=== PATIENT | male | born 1950 | race Caucasian/White ===

== ENCOUNTER 2021-08-12 10:37 | Emergency (ER) | payer OTHER ==
--- NOTE | 2021-08-12 11:55 | RAD REPORT ---
EXAM DESCRIPTION: RAD - Chest Single View - 08/12/2021 11:43 am CLINICAL HISTORY: edema COMPARISON: No comparisons FINDINGS: Lines: None. Lungs: No evidence of edema or pneumonia. Large lung volumes. Pleural: No significant pleural effusions or pneumothorax. Cardiac: The heart size is within normal limits. Bones: No acute fractures. Other: IMPRESSION: No acute cardiopulmonary disease.
[2021-08-12 12:49] LABS: Absolute Lymphocytes (CBC) 1.1 K/uL (0.7-4.9); Basophils % 0.4 % (0-1.3); Protime INR 1.11
[2021-08-12 13:01] LABS: ALT/SGPT 16 U/L (12-78); AST/SGOT 14 U/L (15-37); Albumin 2.8 g/dL (3.4-5.0); Alkaline Phosphatase 85 U/L (45-117); BUN Blood Urea Nitrogen 17 mg/dL (7-18); Bicarbonate 28 mmol/L (21-32); Bilirubin Direct 0.2 mg/dL (0-0.2); Bilirubin Total 0.6 mg/dL (0.2-1.0); Glucose Level 112 mg/dL (74-106); Magnesium 2.3 mg/dL (1.8-2.4); NT PRO-BNP 679 pg/mL (<125); Protein, Total 8.2 g/dL (6.4-8.2); Sodium Level 140 mmol/L (136-145); Troponin (Emerg Dept Use Only) < 0.02 ng/mL (0.0-0.045)
[2021-08-12 13:13] LABS: Lymphocytes % 13.4 % (15.3-44.8); MPV 8.1 fL (7.6-11.3); RBC Red Blood Cell Count 4.47 M/uL (4.33-5.43)
--- NOTE | 2021-08-12 13:48 | ER ---
Nurse's Notes [facility] Name: Patricio King Age: 71 yrs Sex: Male : 1950 Arrival Date: 08/12/2021 Time: 10:43 Bed 19 Private MD: Diagnosis: Generalized edema Presentation: 08/12 10:53 Chief complaint: Patient states: "my left foot started swelling up and now my right aa5 foot is swollen and this morning when I woke up my left hand is swollen and painful". Pt also states "I have an old injury to my right ring finger and this morning it was bothering me and it was swollen". Coronavirus screen: At this time, the client does not indicate any symptoms associated with coronavirus-19. Ebola Screen: No symptoms or risks identified at this time. Initial Sepsis Screen: Does the patient meet any 2 criteria? No. Patient's initial sepsis screen is negative. Does the patient have a suspected source of infection? No. Patient's initial sepsis screen is negative. Risk Assessment: Do you want to hurt yourself or someone else? Patient reports no desire to harm self or others. Onset of symptoms was July 2021. 10:53 Acuity: CATARINO 3 aa5 10:53 Method Of Arrival: Wheelchair aa5 Historical: - Allergies: 10:51 No Known Allergies; aa5 - Home Meds: 10:51 None [Active]; aa5 - PMHx: 10:51 None; aa5 - PSHx: 10:51 Prostate cancerous mass removed; aa5 - Immunization history:: Client reports having NOT received the Covid vaccine. - Social history:: Smoking status: Patient reports the use of cigarette tobacco products, smokes one-half pack cigarettes per day, Patient/guardian denies using alcohol, street drugs, The patient lives with family. - Family history:: not pertinent. Screenin:15 Abuse screen: Denies threats or abuse. Nutritional screening: No deficits noted. sl2 Tuberculosis screening: No symptoms or risk factors identified. Fall Risk None identified. Assessment: 11:14 Reassessment: Portable CXR in progress at bedside. sl2 11:15 General: Appears in no apparent distress. comfortable, well groomed, Behavior is calm, sl2 cooperative, Reports Patient c/o swelling to bilateral lower legs and feet, swelling to bilateral hands with joint pain. Pain: Complains of pain in right bermudez and medial aspect of right calf and right calf and lateral aspect of right calf Pain currently is 5 out of 10 on a pain scale. Quality of pain is described as aching, Pain began gradually, Is continuous, Aggravated by increased activity, repositioning. Neuro: No deficits noted. Cardiovascular: No deficits noted. Respiratory:. GI: Abd is soft and non tender Distended, soft and nontender with palpation Reports bloating, Patient currently denies abdominal pain. : No deficits noted. EENT: No deficits noted. Derm: No deficits noted. Musculoskeletal: No deficits noted. 11:15 Musculoskeletal: Reports joint pain and muscle ache. sl2 Vital Signs: 10:53 BP 167 / 87; Pulse 88; Resp 18 S; Temp 98.3(TE); Pulse Ox 99% on R/A; Weight 63.5 kg aa5 (R); Height 5 ft. 7 in. (170.18 cm) (R); 11:15 BP 162 / 84; Pulse 85; Resp 18; Temp 98.4; Pulse Ox 99% on R/A; sl2 12:00 BP 165 / 82; Pulse 85; Resp 18; Temp 98.2; Pulse Ox 99% on R/A; sl2 13:00 BP 160 / 86; Pulse 69; Resp 18; Temp 98.2; Pulse Ox 99% on R/A; sl2 14:00 BP 162 / 80; Pulse 82; Resp 18; Temp 98.4; Pulse Ox 99% on R/A; sl2 10:53 Body Mass Index 21.93 (63.50 kg, 170.18 cm) aa5 ED Course: 10:43 Patient arrived in ED. as 10:51 Arm band placed on. aa5 10:55 Triage completed. aa5 10:56 Stephani Lea MD is Attending Physician. ma2 11:14 Nohelia Meade, STEF is Primary Nurse. sl2 11:15 No apparent distress. Awaiting lab results, Awaiting radiology results. sl2 11:15 Patient has correct armband on for positive identification. sl2 11:15 Patient did not have IV access during this emergency room visit. sl2 11:43 XRAY Chest (1 view) In Process Unspecified. EDMS 13:42 No provider procedures requiring assistance completed. sl2 13:48 Darius, Patricio, MD is Referral Physician. ma2 Administered Medications: 02:07 Drug: Lasix (furosemide) 20 mg Route: IVP; Site: right upper arm; 2 02:10 Follow up: Response: No adverse reaction 2 Outcome: 13:48 Discharge ordered by . ma2 14:13 Discharged to home ambulatory. sl2 14:13 Condition: stable 14:13 Discharge instructions given to patient, Instructed on discharge instructions, follow up and referral plans. no drinking with medication, safety practices, Demonstrated understanding of instructions, follow-up care, medications, Prescriptions given X 1. 14:17 Patient left the ED. 2 Signatures: Dispatcher [employer] EDMS Nadiya Cheung Audri, RN RN aa5 Stephani Lea MD MD va2 Nohelia Meade RN RN sl2
--- NOTE | 2021-08-12 13:48 | EDPHYS ---
Physician Documentation [facility] Name: Patricio King Age: 71 yrs Sex: Male : 1950 Arrival Date: 08/12/2021 Time: 10:43 Bed 19 Private MD: ED Physician Stephani Lea HPI: 08/12 11:40 This 71 yrs old Male presents to ER via Wheelchair with complaints of Edema. ma2 11:40 The complaints affect the lateral aspect of right calf, right calf, medial aspect of ma2 right calf and right bermudez. Onset: The symptoms/episode began/occurred gradually, 2 week(s) ago. Associated signs and symptoms: Pertinent negatives nausea, tingling, vomiting. Severity of symptoms: At their worst the symptoms were moderate, in the emergency department the symptoms are unchanged. The patient has not experienced similar symptoms in the past. Patient has bilateral lower extremity edema equal both sides pitting, gradual for 2 weeks. No other symptoms. He drinks beers every day.. Historical: - Allergies: 10:51 No Known Allergies; aa5 - Home Meds: 10:51 None [Active]; aa5 - PMHx: 10:51 None; aa5 - PSHx: 10:51 Prostate cancerous mass removed; aa5 - Immunization history:: Client reports having NOT received the Covid vaccine. - Social history:: Smoking status: Patient reports the use of cigarette tobacco products, smokes one-half pack cigarettes per day, Patient/guardian denies using alcohol, street drugs, The patient lives with family. - Family history:: not pertinent. ROS: 11:40 Constitutional: Negative for fever, chills, and weight loss. ma2 11:40 All other systems are negative. Exam: 11:40 Constitutional: This is a well developed, well nourished patient who is awake, alert, ma2 and in no acute distress. Head/Face: Normocephalic, atraumatic. Eyes: Pupils equal round and reactive to light, extra-ocular motions intact. Lids and lashes normal. Conjunctiva and sclera are non-icteric and not injected. Cornea within normal limits. Periorbital areas with no swelling, redness, or edema. ENT: Nares patent. No nasal discharge, no septal abnormalities noted. Tympanic membranes are normal and external auditory canals are clear. Oropharynx with no redness, swelling, or masses, exudates, or evidence of obstruction, uvula midline. Mucous membranes moist. Neck: Trachea midline, no thyromegaly or masses palpated, and no cervical lymphadenopathy. Supple, full range of motion without nuchal rigidity, or vertebral point tenderness. No Meningismus. Chest/axilla: Normal chest wall appearance and motion. Nontender with no deformity. No lesions are appreciated. Cardiovascular: Regular rate and rhythm with a normal S1 and S2. No gallops, murmurs, or rubs. Normal PMI, no JVD. No pulse deficits. Respiratory: Lungs have equal breath sounds bilaterally, clear to auscultation and percussion. No rales, rhonchi or wheezes noted. No increased work of breathing, no retractions or nasal flaring. Abdomen/GI: Soft, non-tender, with normal bowel sounds. No distension or tympany. No guarding or rebound. No evidence of tenderness throughout. Skin: Warm, dry with normal turgor. Normal color with no rashes, no lesions, and no evidence of cellulitis. MS/ Extremity: There is 2+ bilateral lower extremity edema up to mid tibia, equal both sides. Nontender. There is also a papular rash diffuse on both legs. Patient also have left wrist pain with full range of motion, no tenderness or wrist effusion, or skin changes. Otherwise pulses equal, no cyanosis. Neurovascular intact. Full, normal range of motion. Psych: Awake, alert, with orientation to person, place and time. Behavior, mood, and affect are within normal limits. Vital Signs: 10:53 BP 167 / 87; Pulse 88; Resp 18 S; Temp 98.3(TE); Pulse Ox 99% on R/A; Weight 63.5 kg aa5 (R); Height 5 ft. 7 in. (170.18 cm) (R); 11:15 BP 162 / 84; Pulse 85; Resp 18; Temp 98.4; Pulse Ox 99% on R/A; sl2 12:00 BP 165 / 82; Pulse 85; Resp 18; Temp 98.2; Pulse Ox 99% on R/A; sl2 13:00 BP 160 / 86; Pulse 69; Resp 18; Temp 98.2; Pulse Ox 99% on R/A; sl2 14:00 BP 162 / 80; Pulse 82; Resp 18; Temp 98.4; Pulse Ox 99% on R/A; sl2 10:53 Body Mass Index 21.93 (63.50 kg, 170.18 cm) aa5 MDM: 10:56 Patient medically screened. ma2 11:40 Differential diagnosis: Pitting edema lower extremity, likely due to COPD versus CHF ma2 versus kidney disease. Given the rash there is also possible infectious process going on. We will rule out emergency today and he needs a follow-up with PCP for further diagnosis. 13:47 Data reviewed: vital signs, nurses notes. Counseling: I had a detailed discussion with ma the patient and/or guardian regarding: the historical points, exam findings, and any diagnostic results supporting the discharge/admit diagnosis, the presence of at least one elevated blood pressure reading (>120/80) during this emergency department visit, lab results, radiology results, the need for outpatient follow up. Response to treatment: the patient's symptoms have markedly improved after treatment. 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 08/12 10:57 Order name: Basic Metabolic Panel [facility] 08/12 10:57 Order name: CBC with Diff [facility] 08/12 10:57 Order name: LFT's; Complete Time: 13:19 [facility] 08/12 10:57 Order name: Magnesium; Complete Time: 13:19 [facility] 08/12 10:57 Order name: NT PRO-BNP; Complete Time: 13:19 [facility] 08/12 10:57 Order name: PT-INR; Complete Time: 13:19 [facility] 08/12 10:57 Order name: Troponin (emerg Dept Use Only); Complete Time: 13:19 [facility] 08/12 10:57 Order name: XRAY Chest (1 view); Complete Time: 12:52 [facility] 08/12 10:57 Order name: EKG; Complete Time: 10:58 [facility] 08/12 10:57 Order name: Cardiac monitoring; Complete Time: 13:13 [facility] 08/12 10:57 Order name: EKG - Nurse/Tech; Complete Time: 13:42 [facility] 08/12 10:57 Order name: Basic Metabolic Panel; Complete Time: 13:19 [facility] 08/12 10:57 Order name: CBC with Automated Diff; Complete Time: 13:19 EDMS 08/12 10:57 Order name: IV Saline Lock; Complete Time: 13:13 ia2 08/12 10:57 Order name: Labs collected and sent; Complete Time: 13:13 ia2 08/12 10:57 Order name: O2 Per Protocol; Complete Time: 13:13 ia2 08/12 10:57 Order name: O2 Sat Monitoring; Complete Time: 13:13 ma2 Administered Medications: 02:07 Drug: Lasix (furosemide) 20 mg Route: IVP; Site: right upper arm; 2 02:10 Follow up: Response: No adverse reaction sl2 Disposition Summary: 08/12/21 13:48 Discharge Ordered Location: Home ma2 Condition: Stable ma2 Diagnosis - Generalized edema ma2 Followup: ma2 - With: Patricio Mccoy MD - When: Tomorrow - Reason: Continuance of care Discharge Instructions: - Discharge Summary Sheet ma2 - Edema, [id number] ma2 Forms: - Medication Reconciliation Form ma2 - Thank You Letter ma2 - Antibiotic Education ma2 - Prescription Opioid Use ma2 Prescriptions: - Lasix 20 mg Oral Tablet - take 1 tablet by ORAL route once daily; 20 tablet; Refills: 0, Product ma2 Selection Permitted Signatures: Dispatcher [employer] Mya Thornton, RN RN aa5 Stephani Lea MD MD ma2 Nohelia Meade RN RN sl2
[2021-08-12 14:22] VITALS: O2SAT 99
[2021-08-12] MEDS ORDERED: FUROSEMIDE 20 MG TABLET ONE (14:27)
[2021-08-12 14:28] VITALS: BP 162/80; TEMP 98.4
== END 2021-08-12 14:17 | disposition home or self-care (01) ==
LOC: ER 10:37
DX: R60.1 Generalized edema (principal); F17.210 Nicotine dependence, cigarettes, uncomplicated
CPT/HCPCS: 36415; 71045; 80048; 80076; 83735; 83880; 84484; 85025; 85610; 93005; 96374; 99283

== ENCOUNTER 2024-01-13 12:56 | Inpatient (IN) | payer OTHER, SELFPAY ==
--- OUTSIDE RECORDS SUMMARY | 2024-01-13 12:59 | XMS REPORT | Continuity of Care Document ---
Author Name Unknown Address [address] [facility] [address] [place] [address] [facility] thconnect Address [address] [facility] [address] [place] [address] Care Team Providers Care Motor Boss Name Role Phone Pcp, Patient Does Not Have A Primary Care Physic tyshawn SCOTTIE HERMOSILLO Attending Clinician Unavailab Dannie OAKLEY, Scottie Tran Attending Clinician [phone] Cheryle Chavez CRNA Attending Clinician [phone] Sandra Holland MD Attending Clinician + Doctor Unassigned, Stout Attending Clinician U navkendell Pob, [facility] Main Attending Clinician Unavailabl e Provider, [facility] Attending Clinician Unavailable LAVONNE PHELAN Attending Clinician EDWIGE Roach Attending Clinician Unavailable Mayuri Brice Attending Clinician [phone] MAUYRI PEDRAZA Attending Clinician Unavailable Nida LUGOSWDeepthi Attending Clinician Unava TERA Rooney Attending Clinician Unavailable Hans OAKLEY, Edwige Attending Clinician [phone] JOSE D EPSTEIN Attending Clinician Unavailable Az Le DO Attending Clinician [phone] Jose D Epstein MD Attending Clinician [phone] GELY DUMAS Attending Clinician Unavailable Gely Dumas MD Attending Clinician [phone] STEPHEN DOWNEY Attending Clinician UnavailStephen Churchill MD Attending Clinician [phone] DESTINEY CHÁVEZ Attending Clinician Unavailable SCOTTIE HERMOSILLO Admitting Clinician UnavailScottie Singletary MD Admitting Clinician [phone] JOSE D EPSTEIN Admitting Clinician Unavailable Jose D Epstein MD Admitting Clinician [phone] Stephen Downey MD Admitting Clinician [phone] DESTINEY CHÁVEZ Admitting Clinician Unavailable Payers Payer Name Policy Type Policy Number Effective Date Expirati on Date Source MEDICARE PART A \T\ B [id number] 2022 00:00:00 Problems Condition Name Condition Details Condition Category Status Onset Date Resolution Date Last Treatment Date Treating Clinician Comments Source Pulmonary hypertensi on Pulmonary hypertensi on Disease Active 2020-10 00:00: 00 [facility] Hypertensi ve emergency Hypertensi ve emergency Disease Active 2020-10 00:00: 00 [facility] Elevated brain natriureti c peptide (BNP) level Elevated brain natriureti c peptide (BNP) level Disease Active 2020-10 00:00: 00 [facility] Leg edema Leg edema Disease Active 2020-10 00:00: 00 [facility] Primary hypertensi on Primary hypertensi on Disease Active 2020-10 00:00: 00 [facility] Cigarette smoker Cigarette smoker Disease Active 2020-10 00:00: 00 [facility] Lesion of bladder Lesion of bladder Disease Active 11-02 00:00: 00 [facility] Benign prostatic hyperplasi a with urinary retention Benign prostatic hyperplasi a with urinary retention Disease Active 11-02 00:00: 00 [facility] Retention of urine, unspecifie d Retention of urine, unspecifie d Disease Active 11-02 00:00: 00 [facility] Allergies, Adverse Reactions, Alerts Allergy Name Allergy Type Status Severity Reaction(s) Onset Date Inactive Date Treating Clinician Comments Source Lisinopr il Propensi ty to adverse reaction s Active Cough 2020-10 00:00: 00 [facility] LISINOPR IL DRUG INGREDI Active COUGH 2020-10 00:00: 00 [facility] Social History Social Habit Start Date Stop Date Quantity Comments Source History of tobacco use Cigarette Smoker [facility] Exposure to SARS-CoV-2 (event) 2022-09-01 00:00:00 2022-09-11 16:38:00 Not sure [facility] Alcohol intake 2022-09-11 00:00:00 2022-09-11 00:00:00 .29 /d [facility] Tobacco use and exposure 2022-08-23 00:00:00 2022-08-23 00:00:00 Smokeless tobacco non-user [facility] Sex Assigned At 1950 00:00:00 1950 00:00:00 [facility] Smoking Status Start Date Stop Date Source Smokes tobacco daily 2022-08-23 00:00:00 [facility] Medications Ordered Medication Name Filled Medication Name Start Date Stop Date Current Medication? Ordering Clinician Indication Dosage Frequency Signature (SIG) Comments Components Source neomycin-po lymyxin-dex amethasone (MAXITROL) 3.5 mg/g-10,000 unit/g-0.1 % ophthalmic ointment 2021-10 20:07: 00 09-19 20:16 :55 No PRN, Starting on Sat09/19/22 at 1407, Until Sat09/19/22 at 1416, Routine, Intra-op [facility] dexamethaso ne (DECADRON PHOSPHATE) injection 2021-10 19:57: 00 09-19 20:16 :55 No PRN, Starting on Sat09/19/22 at 1357, Until Sat09/19/22 at 1416, Routine, Intra-op [facility] ceFAZolin (ANCEF) injection 2021-10 19:57: 00 09-19 20:16 :55 No PRN, Starting on Sat09/19/22 at 1357, Until Sat09/19/22 at 1416, ALEYDA, [facility] carbachoL (MIOSTAT) 0.01 % intraocular injection 2021-10 19:57: 00 09-19 20:16 :55 No PRN, Starting on Sat09/19/22 at 1357, Until Sat09/19/22 at 1416, Routine, Intra-op [facility] sodium chloride (NS) injection 2021-10 19:50: 00 09-19 20:16 :55 No PRN, Starting on Sat09/19/22 at 1350, Until Sat09/19/22 at 1416, Routine, Intra-op [facility] chondroitin sulf-sod hyaluronate (DUOVISC VISCO ELASTIC) intraocular injection 2021-10 19:49: 00 09-19 20:16 :55 No PRN, Starting on Sat09/19/22 at 1349, Until Sat09/19/22 at 1416, Routine, [facility]op [facility] EPINEPHrine 1:1,000 (1 mg/mL) (ADRENALIN) injection 2021-10 19:42: 00 09-19 20:16 :55 No PRN, Starting on Sat09/19/22 at 1342, Until Sat09/19/22 at 1416, Routine, Intra-op [facility] propofoL IV infusion 2021-10 19:40: 00 10-01 15:14 :19 No Intravenou s, ONCE INTRA PROCEDURE, Starting on Sat09/19/22 at 1340, Until Sat10/01/22 at 0914, Routine, Intra-op [facility] Hyaluronida se, Human Recomb. (HYLENEX) injection 2021-10 19:40: 00 09-19 20:16 :55 No PRN, Starting on Sat09/19/22 at 1340, Until Sat09/19/22 at 1416, Routine, Intra-op [facility] eye block syringe 11 mL 2021-10 19:40: 00 09-19 20:16 :55 No PRN, Starting on Sat09/19/22 at 1340, Until Sat09/19/22 at 1416, Intra-op [facility] balanced salt irrig soln comb1 (BSS PLUS) ophthalmic solution 500 mL bag 2021-10 19:39: 00 09-19 20:16 :55 No PRN, Starting on Sat09/19/22 at 1339, Until Sat09/19/22 at 1416, Routine, Intra-op [facility] lidocaine 1% (XYLOCAINE) 100 mg/10 mL (1 %) injection 2021-10 19:39: 00 09-19 20:14 :44 No Intravenou s, ONCE INTRA PROCEDURE, Starting on Sat09/19/22 at 1339, Until Sat09/19/22 at 1414, Routine, Intra-op [facility] water for irrigation irrigation solution 2021-10 19:37: 00 09-19 20:16 :55 No PRN, Starting on Sat09/19/22 at 1337, Until Sat09/19/22 at 1416, Routine, Intra-op [facility] lactated ringers IV infusion 2021-10 19:34: 00 09-19 20:14 :44 No IV Infusion, CONTINUOUS PRN, Starting on Sat09/19/22 at 1334, Until Sat09/19/22 at 1414, Routine, Intra-op [facility] cyclopent 1%-tropic 1%-phenyl 2.5%-ketor 0.5% (MYDRIATIC #5) ophthalmic solution syringe 0.5 mL 2021-10 18:15: 00 09-19 18:27 :00 No .5mL 0.5 mL, Left Eye, ONCE, 1 dose, On Sat09/19/22 at 1215, Routine, DSU Pre-op [facility] lactated ringers IV infusion 1,000 mL 2021-10 18:15: 00 09-19 18:28 :00 No 1000mL at 42 mL/hr, 1,000 mL, IV Infusion, ONCE, 1 dose, On Sat09/19/22 at 1215, Routine, DSU Pre-op [facility] cyclopent 1%-tropic 1%-phenyl 2.5%-ketor 0.5% (MYDRIATIC #5) ophthalmic solution syringe 0.5 mL 2021-10 18:15: 00 09-19 18:27 :00 No .5mL 0.5 mL, Left Eye, ONCE, 1 dose, On Sat09/19/22 at 1215, Routine, DSU Pre-op [facility] lactated ringers IV infusion 1,000 mL 2021-10 18:15: 00 09-19 18:28 :00 No 1000mL at 42 mL/hr, 1,000 mL, IV Infusion, ONCE, 1 dose, On Sat09/19/22 at 1215, Routine, DSU Pre-op [facility] diclofenac 50 mg EC tablet 2021-10 15:05: 00 Yes 50mg Take 50 mg by mouth 3 (three) times daily with meals. [facility] diclofenac 50 mg EC tablet 2021-10 15:05: 00 Yes 50mg Take 50 mg by mouth 3 (three) times daily with meals. [facility] diclofenac 50 mg EC tablet 2021-10 15:05: 00 Yes 50mg Take 50 mg by mouth 3 (three) times daily with meals. [facility] diclofenac 50 mg EC tablet 2021-10 16:36: 54 Yes 50mg Take 50 mg by mouth 3 (three) times daily with meals. [facility] sodium chloride (NS) injection 2021-10 18:41: 00 08-29 19:17 :44 No PRN, Starting on Sat08/29/22 at 1241, Until Sat08/29/22 at 1317, Routine, Intra-op [facility] neomycin-po lymyxin-dex amethasone (MAXITROL) 3.5 mg/g-10,000 unit/g-0.1 % ophthalmic ointment 2021-10 18:41: 00 08-29 19:17 :44 No PRN, Starting on Sat08/29/22 at 1241, Until Sat08/29/22 at 1317, Routine, Intra-op [facility] dexamethaso ne (DECADRON PHOSPHATE) injection 2021-10 18:41: 00 08-29 19:17 :44 No PRN, Starting on Sat08/29/22 at 1241, Until Sat08/29/22 at 1317, Routine, Intra-op [facility] ceFAZolin (ANCEF) injection 2021-10 18:41: 00 08-29 19:17 :44 No PRN, Starting on Sat08/29/22 at 1241, Until Sat08/29/22 at 1317, ALEYDA, Intra-op [facility] carbachoL (MIOSTAT) 0.01 % intraocular injection 2021-10 18:40: 00 08-29 19:17 :44 No PRN, Starting on Sat08/29/22 at 1240, Until Sat08/29/22 at 1317, Routine, Intra-op [facility] chondroitin sulf-sod hyaluronate (DUOVISC VISCO ELASTIC) intraocular injection 2021-10 18:31: 00 08-29 19:17 :44 No PRN, Starting on Sat08/29/22 at 1231, Until Sat08/29/22 at 1317, Routine, Intra-op [facility] EPINEPHrine 1:1,000 (1 mg/mL) (ADRENALIN) injection 2021-10 18:30: 00 08-29 19:17 :44 No PRN, Starting on Sat08/29/22 at 1230, Until Sat08/29/22 at 1317, Routine, Intra-op [facility] balanced salt irrig soln comb1 (BSS PLUS) ophthalmic solution 500 mL bag 2021-10 18:30: 00 08-29 19:17 :44 No PRN, Starting on Sat08/29/22 at 1230, Until Sat08/29/22 at 1317, Routine, Intra-op [facility] water for irrigation irrigation solution 2021-10 18:23: 00 08-29 19:17 :44 No PRN, Starting on Sat08/29/22 at 1223, Until Sat08/29/22 at 1317, Routine, Intra-op [facility] Hyaluronida se, Human Recomb. (HYLENEX) injection 2021-10 18:19: 00 08-29 19:17 :44 No PRN, Starting on Sat08/29/22 at 1219, Until Sat08/29/22 at 1317, Routine, [facility] 2021-10 18:19: 00 08-29 19:17 :44 No PRN, Starting on Sat08/29/22 at 1219, Until Sat08/29/22 at 1317, Intra-op [facility] cyclopent 1%-tropic 1%-phenyl 2.5%-ketor 0.5% (MYDRIATIC #5) ophthalmic solution syringe 0.5 mL 2021-10 16:15: 00 08-29 16:25 :00 No .5mL 0.5 mL, Right Eye, ONCE, 1 dose, On Sat08/29/22 at 1015, Routine, DSU Pre-op [facility] lactated ringers IV infusion 1,000 mL 2021-10 16:15: 00 08-29 16:25 :00 No 1000mL at 42 mL/hr, 1,000 mL, IV Infusion, ONCE, 1 dose, On Sat08/29/22 at 1015, Routine, [facility] cyclop[facility] 1%-tropic 1%-phenyl 2.5%-ketor 0.5% (MYDRIATIC #5) ophthalmic solution syringe 0.5 mL 2021-10 16:15: 00 08-29 16:25 :00 No .5mL 0.5 mL, Right Eye, ONCE, 1 dose, On Sat08/29/22 at 1015, Routine, [facility] lactated ringers [facility] infusion 1,000 mL 2021-10 16:15: 00 08-29 16:25 :00 No 1000mL at 42 mL/hr, 1,000 mL, IV Infusion, ONCE, 1 dose, On Sat08/29/22 at 1015, Routine, DSU Pre-op [facility] diclofenac 50 mg EC tablet 2021-10 13:52: 19 Yes 50mg Take 50 mg by mouth 3 (three) times daily with meals. [facility] diclofenac 50 mg EC tablet 2021-10 13:52: 19 Yes 50mg Take 50 mg by mouth 3 (three) times daily with meals. [facility] diclofenac 50 mg EC tablet 2021-10 13:52: 19 Yes 50mg Take 50 mg by mouth 3 (three) times daily with meals. [facility] atorvastati n 40 mg tablet 06-14 00:00: 00 Yes 40mg Take 40 mg by mouth in the morning. [facility] atorvastati n 40 mg tablet 0 8 00:00: 00 Yes 40mg Take 40 mg by mouth in the morning. [facility] atorvastati n 40 mg tablet 0 8 00:00: 00 Yes 40mg Take 40 mg by mouth in the morning. [facility] atorvastati n 40 mg tablet 06-14 00:00: 00 Yes 40mg Take 40 mg by mouth in the morning. [facility] atorvastati n 40 mg tablet 0 06-14 00:00: 00 Yes 40mg Take 40 mg by mouth in the morning. [facility] atorvastati n 40 mg tablet 0 825 00:00: 00 Yes 40mg Take 40 mg by mouth in the morning. [facility] atorvastati n 40 mg tablet 0 825 00:00: 00 Yes 40mg Take 40 mg by mouth in the morning. [facility] amLODIPine 5 mg tablet 8-16 00:00: 00 Yes 5mg Take 5 mg by mouth in the morning. [facility] amLODIPine 5 mg tablet 2021-0 8-16 00:00: 00 Yes 5mg Take 5 mg by mouth in the morning. [facility] 2021-0 8-16 00:00: 00 Yes 5mg Take 5 mg by mouth in the morning. [facility] amLODIPine 5 mg tablet 2021-0 8-16 00:00: 00 Yes 5mg Take 5 mg by mouth in the morning. [facility] amLODIPine 5 mg tablet 2021-0 8-16 00:00: 00 Yes 5mg Take 5 mg by mouth in the morning. [facility] amLODIPine 5 mg tablet 2021-0 8-16 00:00: 00 Yes 5mg Take 5 mg by mouth in the morning. [facility] amLODIPine 5 mg tablet 2021-0 8-16 00:00: 00 Yes 5mg Take 5 mg by mouth in the morning. [facility] triamcinolo ne acetonide 0.1 % dental paste 2021-0 2-10 00:00: 00 Yes by Dental route at bedtime. [facility] losartan 100 mg tablet 2021-0 2-10 00:00: 00 Yes [id number] 100mg Take 1 tablet by mouth daily. [facility] hydroCHLORO thiazide 25 mg tablet 2021-0 2-10 00:00: 00 Yes [id number] 25mg Take 1 tablet by mouth daily. [facility] triamcinolo ne acetonide 0.1 % dental paste 2021-0 2-10 00:00: 00 Yes by Dental route at bedtime. [facility] losartan 100 mg tablet 2021-0 2-10 00:00: 00 Yes [id number] 100mg Take 1 tablet by mouth daily. [facility] hydroCHLORO thiazide 25 mg tablet 2021-0 2-10 00:00: 00 Yes [id number] 25mg Take 1 tablet by mouth daily. [facility] triamcinolo ne acetonide 0.1 % dental paste 2-0 2-10 00:00: 00 Yes by Dental route at bedtime. [facility] losartan 100 mg tablet 2-0 2-10 00:00: 00 Yes [id number] 100mg Take 1 tablet by mouth daily. [facility] hydroCHLORO thiazide 25 mg tablet 2-0 2-10 00:00: 00 Yes [id number] 25mg Take 1 tablet by mouth daily. [facility] triamcinolo ne acetonide 0.1 % dental paste 2021-0 2-10 00:00: 00 Yes by Dental route at bedtime. [facility] losartan 100 mg tablet 2021-0 2-10 00:00: 00 Yes [id number] 100mg Take 1 tablet by mouth daily. [facility] hydroCHLORO thiazide 25 mg tablet 2021-0 2-10 00:00: 00 Yes [id number] 25mg Take 1 tablet by mouth daily. [facility] triamcinolo ne acetonide 0.1 % dental paste 2021-0 2-10 00:00: 00 Yes by Dental route at bedtime. [facility] losartan 100 mg tablet 2021-0 2-10 00:00: 00 Yes [id number] 100mg Take 1 tablet by mouth daily. [facility] hydroCHLORO thiazide 25 mg tablet 2021-0 2-10 00:00: 00 Yes [id number] 25mg Take 1 tablet by mouth daily. [facility] triamcinolo ne acetonide 0.1 % dental paste 2021-0 2-10 00:00: 00 Yes by Dental route at bedtime. [facility] losartan 100 mg tablet 2021-0 2-10 00:00: 00 Yes [id number] 100mg Take 1 tablet by mouth daily. [facility] hydroCHLORO thiazide 25 mg tablet 2021-0 2-10 00:00: 00 Yes [id number] 25mg Take 1 tablet by mouth daily. [facility] triamcinolo ne acetonide 0.1 % dental paste 2021-0 2-10 00:00: 00 Yes by Dental route at bedtime. [facility] losartan 100 mg tablet 2-0 2-10 00:00: 00 Yes [id number] 100mg Take 1 tablet by mouth daily. [facility] hydroCHLORO thiazide 25 mg tablet 2-0 2-10 00:00: 00 Yes [id number] 25mg Take 1 tablet by mouth daily. [facility] triamcinolo ne acetonide 0.1 % dental paste 0 2-10 00:00: 00 Yes by Dental route at bedtime. [facility] losartan 100 mg tablet 0 2-10 00:00: 00 Yes [id number] 100mg Take 1 tablet by mouth daily. [facility] hydroCHLORO thiazide 25 mg tablet 0 2-10 00:00: 00 Yes [id number] 25mg Take 1 tablet by mouth daily. [facility] triamcinolo ne acetonide 0.1 % dental paste 0 2-10 00:00: 00 Yes by Dental route at bedtime. [facility] losartan 100 mg tablet 0 2-10 00:00: 00 Yes [id number] 100mg Take 1 tablet by mouth daily. [facility] hydroCHLORO thiazide 25 mg tablet 0 2-10 00:00: 00 Yes [id number] 25mg Take 1 tablet by mouth daily. [facility] triamcinolo ne acetonide 0.1 % dental paste 0 2-10 00:00: 00 Yes by Dental route at bedtime. [facility] losartan 100 mg tablet 0 2-10 00:00: 00 Yes [id number] 100mg Take 1 tablet by mouth daily. [facility] hydroCHLORO thiazide 25 mg tablet 0 2-10 00:00: 00 Yes [id number] 25mg Take 1 tablet by mouth daily. [facility] triamcinolo ne acetonide 0.1 % dental paste 0 2-10 00:00: 00 Yes by Dental route at bedtime. [facility] losartan 100 mg tablet 0 2-10 00:00: 00 Yes [id number] 100mg Take 1 tablet by mouth daily. [facility] hydroCHLORO thiazide 25 mg tablet 0 2-10 00:00: 00 Yes [id number] 25mg Take 1 tablet by mouth daily. [facility] clotrimazol e 10 mg cata 2-10 00:00: 00 12-08 05:59 :00 No [id number] 10mg Take 1 tablet by mouth 5 (five) times daily for 7 days. [facility] clotrimazol e 10 mg cata 2-10 00:00: 00 12-08 05:59 :00 No [id number] 10mg Take 1 tablet by mouth 5 (five) times daily for 7 days. [facility] lisinopriL 10 mg tablet 2020-10 15:44: 42 10-02 00:00 :00 No 10mg Take 10 mg by mouth daily. [facility] losartan 100 mg tablet 2020-10 00:00: 00 Yes [id number] 100mg Take 1 tablet by mouth daily. [facility] hydroCHLORO thiazide 25 mg tablet 2020-10 00:00: 00 Yes 25mg Take 1 tablet by mouth daily. [facility] KCL 20 mEq tablet 2020-10 00:00: 00 Yes 20meq Take 1 tablet by mouth daily. [facility] losartan 100 mg tablet 2020-10 00:00: 00 Yes [id number] 100mg Take 1 tablet by mouth daily. [facility] hydroCHLORO thiazide 25 mg tablet 2020-10 00:00: 00 Yes 25mg Take 1 tablet by mouth daily. [facility] KCL 20 mEq tablet 2020-10 00:00: 00 Yes 20meq Take 1 tablet by mouth daily. [facility] KCL 20 mEq tablet 2020-10 00:00: 00 Yes 20meq Take 1 tablet by mouth daily. [facility] KCL 20 mEq tablet 2020-10 00:00: 00 Yes 20meq Take 1 tablet by mouth daily. [facility] KCL 20 mEq tablet 2020-10 00:00: 00 Yes 20meq Take 1 tablet by mouth daily. [facility] KCL 20 mEq tablet 2020-10 00:00: 00 Yes 20meq Take 1 tablet by mouth daily. [facility] KCL 20 mEq tablet 2020-10 00:00: 00 Yes 20meq Take 1 tablet by mouth daily. [facility] KCL 20 mEq tablet 2020-10 00:00: 00 Yes 20meq Take 1 tablet by mouth daily. [facility] KCL 20 mEq tablet 2020-10 00:00: 00 Yes 20meq Take 1 tablet by mouth daily. [facility] KCL 20 mEq tablet 2020-10 00:00: 00 Yes 20meq Take 1 tablet by mouth daily. [facility] KCL 20 mEq tablet 2020-10 00:00: 00 Yes 20meq Take 1 tablet by mouth daily. [facility] KCL 20 mEq tablet 2020-10 00:00: 00 Yes 20meq Take 1 tablet by mouth daily. [facility] KCL 20 mEq tablet 2020-10 00:00: 00 Yes 20meq Take 1 tablet by mouth daily. [facility] losartan 100 mg tablet 2020-10 00:00: 00 11-30 00:00 :00 No [id number] 100mg Take 1 tablet by mouth daily. [facility] hydroCHLORO thiazide 25 mg tablet 2020-10 00:00: 00 11-30 00:00 :00 No 25mg Take 1 tablet by mouth daily. [facility] diclofenac 50 mg EC tablet 2020-10 17:17: 09 Yes 50mg Take 50 mg by mouth 3 (three) times daily with meals. [facility] diclofenac 50 mg EC tablet 2020-10 17:17: 09 Yes 50mg Take 50 mg by mouth 3 (three) times daily with meals. [facility] diclofenac 50 mg EC tablet 2020-10 17:17: 09 Yes 50mg Take 50 mg by mouth 3 (three) times daily with meals. [facility] diclofenac 50 mg EC tablet 2020-10 17:17: 09 Yes 50mg Take 50 mg by mouth 3 (three) times daily with meals. [facility] diclofenac 50 mg EC tablet 2020-10 17:17: 09 Yes 50mg Take 50 mg by mouth 3 (three) times daily with meals. [facility] diclofenac 50 mg EC tablet 2020-10 17:17: 09 Yes 50mg Take 50 mg by mouth 3 (three) times daily with meals. [facility] hydroCHLORO thiazide 25 mg tablet 2020-10 00:00: 00 10-02 00:00 :00 No [id number] 25mg Take 1 tablet by mouth daily. [facility] KCL 20 mEq tablet 2020-10 00:00: 00 10-02 00:00 :00 No [id number] 20meq Take 1 tablet by mouth daily. [facility] tamsulosin 0.4 mg 24 hr capsule 0 10-29 00:00: 00 Yes [id number] .4mg Take 1 capsule by mouth daily. [facility] tamsulosin 0.4 mg 24 hr capsule 2019-0 10-29 00:00: 00 Yes [id number] .4mg Take 1 capsule by mouth daily. [facility] tamsulosin 0.4 mg 24 hr capsule 2019-0 10-29 00:00: 00 Yes [id number] .4mg Take 1 capsule by mouth daily. [facility] tamsulosin 0.4 mg 24 hr capsule 0 10-29 00:00: 00 Yes [id number] .4mg Take 1 capsule by mouth daily. [facility] tamsulosin 0.4 mg 24 hr capsule 0 10-29 00:00: 00 Yes [id number] .4mg Take 1 capsule by mouth daily. [facility] tamsulosin 0.4 mg 24 hr capsule 2019-0 10-29 00:00: 00 Yes [id number] .4mg Take 1 capsule by mouth daily. [facility] tamsulosin 0.4 mg 24 hr capsule 2019-0 10-29 00:00: 00 Yes [id number] .4mg Take 1 capsule by mouth daily. [facility] tamsulosin 0.4 mg 24 hr capsule 2019-0 10-29 00:00: 00 Yes [id number] .4mg Take 1 capsule by mouth daily. [facility] tamsulosin 0.4 mg 24 hr capsule 10-29 00:00: 00 Yes [id number] .4mg Take 1 capsule by mouth daily. [facility] tamsulosin 0.4 mg 24 hr capsule 10-29 00:00: 00 Yes [id number] .4mg Take 1 capsule by mouth daily. [facility] tamsulosin 0.4 mg 24 hr capsule 10-29 00:00: 00 Yes [id number] .4mg Take 1 capsule by mouth daily. [facility] [facility] tamsulosin 0.4 mg 24 hr capsule 10-29 00:00: 00 Yes [id number] .4mg Take 1 capsule by mouth daily. [facility] tamsulosin 0.4 mg 24 hr capsule 10-29 00:00: 00 Yes [id number] .4mg Take 1 capsule by mouth daily. [facility] Vital Signs Vital Name Observation Time Observation Value Comments S lindseytarik Systolic blood pressure 2022-09-19 20:45:00 196 mm[Hg] [facility] Diastolic blood pressure 2022-09-19 20:45:00 91 mm[Hg] [facility] Heart rate 2022-09-19 20:45:00 78 /min [facility] Respiratory rate 2022-09-19 20:45:00 25 /min [facility] Oxygen saturation in Arterial blood by Pulse oximetry 2022-09-19 20:45:00 97 /min [facility] Body temperature 2022-09-19 20:15:00 36.89 Betsey [facility] Body weight 2022-09-07 19:21:00 55.8 kg [facility] BMI 2022-09-07 19:21:00 19.26 kg/m2 [facility] Respiratory rate 2022-09-19 20:07:00 30 /min [facility] Systolic blood pressure 2022-09-19 18:41:00 191 mm[Hg] [facility] Diastolic blood pressure 2022-09-19 18:41:00 95 mm[Hg] [facility] Heart rate 2022-09-19 18:40:00 80 /min [facility] Body temperature 2022-09-19 18:40:00 37.17 Betsey [facility] Respiratory rate 2022-09-19 18:40:00 18 /min [facility] Oxygen saturation in Arterial blood by Pulse oximetry 2022-09-19 18:40:00 100 /min [facility] Body weight 2022-09-07 19:21:00 55.8 kg [facility] BMI 2022-09-07 19:21:00 19.26 kg/m2 [facility] Systolic blood pressure 2022-08-29 19:20:00 211 mm[Hg] [facility] Diastolic blood pressure 2022-08-29 19:20:00 115 mm[Hg] [facility] Heart rate 2022-08-29 19:20:00 74 /min [facility] Body temperature 2022-08-29 19:20:00 36.89 Betsey [facility] Respiratory rate 2022-08-29 19:20:00 30 /min [facility] Oxygen saturation in Arterial blood by Pulse oximetry 2022-08-29 19:20:00 97 /min [facility] Body height 2022-08-14 16:26:00 170.2 cm [facility] Body weight 2022-08-14 16:26:00 55.8 kg [facility] BMI 2022-08-14 16:26:00 19.26 kg/m2 [facility] Systolic blood pressure 2022-08-29 16:27:00 211 mm[Hg] [facility] Diastolic blood pressure 2022-08-29 16:27:00 109 mm[Hg] [facility] Heart rate 2022-08-29 16:27:00 80 /min [facility] Body temperature 2022-08-29 16:12:00 37.33 Betsey [facility] Respiratory rate 2022-08-29 16:12:00 16 /min [facility] Body height 2022-08-14 16:26:00 170.2 cm [facility] Body weight 2022-08-14 16:26:00 55.8 kg [facility] BMI 2022-08-14 16:26:00 19.26 kg/m2 [facility] Systolic blood pressure 2021-11-30 18:03:00 166 mm[Hg] [facility] Diastolic blood pressure 2021-11-30 18:03:00 104 mm[Hg] [facility] Heart rate 2021-11-30 18:00:00 93 /min [facility] Body temperature 2021-11-30 18:00:00 36.78 Betsey [facility] Respiratory rate 2021-11-30 18:00:00 16 /min [facility] Body height 2021-11-30 18:00:00 170.2 cm [facility] Body weight 2021-11-30 18:00:00 55.849 kg [facility] BMI 2021-11-30 18:00:00 19.28 kg/m2 [facility] Oxygen saturation in Arterial blood by Pulse oximetry 2021-11-30 18:00:00 98 /min [facility] Systolic blood pressure 2021-10-02 21:38:00 137 mm[Hg] [facility] Diastolic blood pressure 2021-10-02 21:38:00 78 mm[Hg] [facility] Heart rate 2021-10-02 21:38:00 89 /min [facility] 2021-10-02 21:38:00 170.2 cm [facility] Body weight 2021-10-02 21:38:00 57.607 kg [facility] BMI 2021-10-02 21:38:00 19.89 kg/m2 [facility] Oxygen saturation in Arterial blood by Pulse oximetry 2021-10-02 21:38:00 97 /min [facility] Procedures Procedure Date / Time Performed Performing Clinician Source PHACOEMULSIFICATION OF CATARACT WITH INTRAOCULAR LENS IMPLANT 2022-09-19 19:29:00 Scottie Hermosillo [facility] ASSIGNMENT OF BENEFITS 2022-09-17 14:39:59 Doctor Unassigned, Stout [facility] PHACOEMULSIFICATION OF CATARACT WITH INTRAOCULAR LENS IMPLANT 2022-08-29 18:08:00 Scottie Hermosillo [facility] DAY SURGERY - ADC 2022-08-29 06:01:00 Doctor Unassigned, Stout [facility] NOTICE OF PRIVACY PRACTICES 2022-08-20 16:19:28 Doctor Unassigned, Stout [facility] NOTICE OF PRIVACY PRACTICES 2022-08-20 16:19:28 Doctor Unassigned, Stout [facility] CONSENT/REFUSAL FOR DIAGNOSI S AND TREATMENT 2022-08-20 16:18:56 Doctor Unassigned, Stout [facility] CONSENT/REFUSAL FOR DIAGNOSI S AND TREATMENT 2022-08-20 16:18:56 Doctor Unassigned, Stout [facility] ASSIGNMENT OF BENEFITS 2022-08-20 16:18:28 Doctor Unassigned, Stout [facility] ASSIGNMENT OF BENEFITS 2022-08-20 16:18:28 Doctor Unassigned, Stout [facility] POCT MOLECULAR STREP 2021-11-30 18:03:00 Mayuri Pedraza [facility] Encounters Start Date/Time End Date/Time Encounter Type Admission Type Attending [facility] Care Facility Care Department Encounter ID Source 2022-09-19 12:11:00 2022-09-19 15:04:00 Outpatient R SCOTTIE HERMOSILLO [facility] OPH [id number] [facility] 2022-09-19 12:11:00 2022-09-19 15:04:00 Hospital Encounter [place] Scottie Tran [facility] 1.2.840.114 350.1.13.10 4.2.7.2.686 [id number] [facility] 2022-09-19 13:34:00 2022-09-19 14:14:00 Anesthesia Event Cheryle Chavez Chelsea Altinger [facility] 1.2.840.114 350.1.13.10 4.2.7.2.686 [id number] [facility] 2022-09-19 12:36:00 2022-09-19 13:10:00 Surgery Scottie Hermosillo [facility] 1.2.840.114 350.1.13.10 4.2.7.2.686 [id number] [facility] 2022-09-17 00:00:00 2022-09-17 00:00:00 Orders Only Doctor Unassigned, Stout [facility] 1.2.840.114 350.1.13.10 4.2.7.2.686 [id number] [facility] 2022-08-29 10:03:00 2022-08-29 13:30:00 Outpatient R SCOTTIE HERMOSILLO [facility] O[facility] [id number] [facility] 2022-08-29 10:03:00 2022-08-29 13:30:00 Hospital Encounter Scottie Hermosillo [facility] 1.2840.114 350.1.13.10 4.2.7.2.686 [id number] [facility] 2022-08-29 11:14:00 2022-08-29 11:48:00 Surgery [facility] Scottie [facility] 1.2840.114 350.1.13.10 4.2.7.2.686 [id number] [facility] 2022-08-29 00:00:00 2022-08-29 00:00:00 Orders Only Doctor Unassigned, Stout [facility] 1.2840.114 350.1.13.10 4.2.7.2.686 [id number] [facility] 2022-08-20 11:15:00 2022-08-20 11:30:00 Home Health Lpn Visit Pob, Adc Lab Main Scottie Hermosillo [facility] PROFESSIO [facility] 1.2840.114 350.1.13.10 4.2.7.2.686 [id number] [facility] 2022-08-20 11:15:00 2022-08-20 11:15:00 Outpatient SCOTTIE RIVERA [facility] [id number] [facility] 2022-08-20 10:15:00 2022-08-20 10:15:00 Outpatient SCOTTIE RIVERA [facility] [id number] [facility] 2022-02-15 00:00:00 2022-02-15 00:00:00 Refill Provider, [facility] 1.2.840.114 350.1.13.10 4.2.7.2.686 [id number] [facility] 2022-01-02 13:30:00 2022-01-02 13:30:00 Outpatient LAVONNE PRICE [facility] [id number] [facility] 2022-01-01 15:20:00 2022-01-01 15:20:00 Outpatient EDWIGE MEDEIROS [facility] [id number] [facility] 2021-12-01 00:00:00 2021-12-01 00:00:00 [facility] 1.2.840.114 350.1.13.10 4.2.7.2.686 [id number] [facility] 2021-11-30 13:00:00 2021-11-30 13:00:00 [facility] 1.2.840.114 350.1.13.10 4.2.7.2.686 [id number] [facility] 2021-11-30 13:00:00 2021-11-30 12:45:11 Outpatient R MILO MAYURI [facility] [id number] [facility] 2021-11-29 00:00:00 2021-11-29 00:00:00 Case Management Nida Deepthi CAGLE 1..840.114 350.1.13.10 4.2.7.2.686 [id number] [facility] 2021-10-11 13:30:00 2021-10-11 13:30:00 Outpatient R TERA PEÑALOZA [facility] [id number] [facility] 2021-10-02 15:28:16 2021-10-02 15:49:50 [facility] 1..840.114 350.1.13.10 4.2.7.2.686 [id number] [facility] 2021-10-02 15:20:00 2021-10-02 15:49:50 [id number] 2021-10-02 00:00:00 2021-10-02 00:00:00 Orders Only Doctor Unassigned, Stout [facility] 1..840.114 350.1.13.10 4.2.7.2.686 [id number] [facility] 2021-09-11 08:11:00 2021-09-12 17:16:00 Outpatient X JOSE D EPSTEIN [facility] [id number] [facility] 2021-09-11 08:11:00 2021-09-12 17:16:00 Emergency Az Le Yaman [facility] 1..840.114 350.1.13.10 4.2.7.2.686 [id number] [facility] 2021-09-11 08:11:00 2021-09-12 17:16:00 Outpatient JOSE D ELAM [facility] [id number] [facility] 2020-02-03 15:00:00 2020-02-03 15:00:00 Outpatient R WAYNE [facility] [id number] [facility] 2020-02-03 07:17:02 2020-02-03 07:32:02 Telemedici ne Visit [facility] 1.2840.114 350.1.13.10 4.2.7.2.686 [id number] [facility] 2020-01-28 13:30:00 2020-01-28 13:30:00 Outpatient R SHAYAN [facility] [id number] [facility] 2020-01-14 14:45:00 2020-01-14 14:45:00 Outpatient R WAYNE [facility] [id number] [facility] 2020-01-14 13:09:33 2020-01-14 13:24:33 Telemedici ne Visit [facility] 1.2840.114 350.1.13.10 4.2.7.2.686 [id number] [facility] 2020-01-07 08:45:00 2020-01-07 08:45:00 Outpatient R RJ DOWNEYHEN [facility] [id number] [facility] 2019-12-10 11:12:18 2019-12-10 16:16:09 Office Visit Stephen Downey [facility] 1.2840.114 350.1.13.10 4.2.7.2.686 [id number] [facility] 2019-12-10 00:00:00 2019-12-10 00:00:00 Telephone Stephen Downey [facility] 1.2840.114 350.1.13.10 4.2.7.2.686 [id number] [facility] 2019-11-12 08:32:02 2019-11-13 11:58:53 Office Visit Stephen Downey [facility] - [facility] 1.2.840.114 350.1.13.10 4.2.7.2.686 [id number] [facility] 2019-11-12 00:00:00 2019-11-12 00:00:00 Telephone Stephen Downey [facility] 1.2.840.114 350.1.13.10 4.2.7.2.686 [id number] [facility] 2019-11-10 08:25:00 2019-11-10 15:08:00 Hospital Encounter Stephen Downey [facility] 1.2.840.114 350.1.13.10 4.2.7.2.686 [id number] [facility] 2019-11-10 00:00:00 2019-11-10 00:00:00 Orders Only Doctor Unassigned, Stout [facility] 1.2.840.114 350.1.13.10 4.2.7.2.686 [id number] [facility] 2019-10-29 00:00:00 2019-10-29 00:00:00 Orders Only Doctor Unassigned, Stout [facility] 1.2.840.114 350.1.13.10 4.2.7.2.686 [id number] [facility] 2019-10-25 17:15:59 2019-10-25 21:32:00 Emergency X DESTINEY CHÁVEZ [facility] ERT [id number] [facility] Results Test Description Test Time Test Comments Results Result Co mments Source [facility]
--- NOTE | 2024-01-13 13:30 | EDPHYS ---
Physician Documentation [facility] Name: Patricio King Age: 73 yrs Sex: Male : 1950 Arrival Date: 01/13/2024 Time: 12:56 Bed 15 Private MD: ED Physician Emiliano Toledo HPI: 01/12 13:30 This 73 yrs old Male presents to ER via Ambulatory with complaints of Abnormal Lab ms3 Results. 13:30 73-year-old male with past medical history of prostate cancer, macular degeneration ms3 presents to the emergency department for positive syphilis testing. 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 Despite treatment patient's patient continued to decrease, patient's hearing became worse, patient's balance became worse. Ophthalmology bang labs showing positive syphilis. Patient was then referred to the emergency department. Historical: - Allergies: 13:06 No Known Allergies; mb9 - Home Meds: 13:06 None [Active]; mb9 - PMHx: 13:06 prostate cancer; macular degeneration; mb9 - PSHx: 12:59 Prostate cancerous mass removed; mb9 - Immunization history:: Adult Immunizations up to date. - Social history:: Smoking status: Patient reports the use of cigarette tobacco products, smokes one-half pack cigarettes per day. ROS: 13:30 Constitutional: Negative for fever, and chills. Neck: Negative for injury, pain, and ms3 swelling, Cardiovascular: Negative for chest pain, and palpitations. Respiratory: Negative for shortness of breath, cough, wheezing, and pleuritic chest pain, 13:30 Eyes: Positive for vision loss, 13:30 ENT: Positive for Hearing loss, 13:30 Neuro: Positive for Loss of balance, Exam: 13:30 Constitutional: This is a well developed, well nourished patient who is awake, alert, ms3 and in no acute distress. Head/Face: Normocephalic, atraumatic. Neck: Trachea midline, no cervical lymphadenopathy. Supple, full range of motion without nuchal rigidity, or vertebral point tenderness. No Meningismus. Chest/axilla: Normal chest wall appearance and motion. Nontender with no deformity. Cardiovascular: Regular rate and rhythm with a normal S1 and S2. No gallops, murmurs, or rubs. Normal PMI, no JVD. No pulse deficits. Respiratory: Lungs have equal breath sounds bilaterally, clear to auscultation and percussion. No rales, rhonchi or wheezes noted. No increased work of breathing, no retractions or nasal flaring. Abdomen/GI: Soft, non-tender, with normal bowel sounds. No distension or tympany. No guarding or rebound. No evidence of tenderness throughout. Skin: Warm, dry with normal turgor. Normal color with no rashes, no lesions, and no evidence of cellulitis. MS/ Extremity: Pulses equal, no cyanosis. Neurovascular intact. Full, normal range of motion. Vital Signs: 13:05 BP 187 / 94; Pulse 76; Resp 16; Temp 98.2; Pulse Ox 95% on R/A; Weight 58.97 kg; Height mb9 5 ft. 7 in. ; Pain 0/10; 13:45 BP 179 / 94; Pulse 69; Resp 16; Pulse Ox 97% ; me1 14:30 BP 172 / 100; Pulse 66; Resp 16; Pulse Ox 100% on R/A; me1 16:21 BP 195 / 96; Pulse 66; Resp 16; Temp 98.2; Pulse Ox 98% ; me1 13:05 Body Mass Index 20.36 (58.97 kg, 170.18 cm) mb9 13:05 Pain Scale: Adult mb9 MDM: 13:24 Patient medically screened. ms3 13:30 Differential Diagnosis Neurosyphilis versus electrolyte abnormality versus ms3 hypertension. Data reviewed: vital signs, nurses notes, lab test result(s), and as a result, I will admit patient. Consideration of Admission/Observation Patient was admitted/placed on observation. Management of patient was discussed with the following: Hospitalist: . I considered the following discharge prescriptions or medication management in the emergency department Medications were administered in the Emergency Department. See MAR. Historians other than the Patient: Family Member: Patient's [id number]-frk. External Records Reviewed: Outpatient labs: Syphilis antibody positive, sed rate 97, RPR 1: 2047. Counseling: I had a detailed discussion with the patient and/or guardian regarding the historical points, exam findings, and any diagnostic results supporting the discharge/admit diagnosis, the need for further work-up and treatment in the hospital. 14:13 Management of patient was discussed with the following: Wet Cotton Feeder: Discussed with Dr beatrice Mann. 10 days IV abx recommended and following symptoms. Patient can be [facility] to [facility]. 01/12 13:18 Order name: CBC with Diff; Complete Time: 14:01 ms3 01/12 13:18 Order name: CMP; Complete Time: 14:07 ms3 01/12 16:51 Order name: Thyroid Stimulating Hormone EDMS 01/12 16:51 Order name: CBC with Automated Diff EDMS 01/12 16:51 Order name: CBC with Automated Diff EDMS 01/12 16:51 Order name: CBC with Automated Diff EDMS 01/12 16:51 Order name: CBC with Automated Diff EDMS 01/12 16:51 Order name: Comprehensive Metabolic Panel EDMS 01/12 16:51 Order name: Comprehensive Metabolic Panel EDMS 01/12 16:51 Order name: Comprehensive Metabolic Panel EDMS 01/12 16:51 Order name: Comprehensive Metabolic Panel EDMS 01/12 16:51 Order name: Lipid Profile EDMS 01/12 16:51 Order name: Lipid Profile EDMS 01/12 16:51 Order name: Magnesium EDMS 01/12 16:51 Order name: Magnesium EDMS 01/12 16:51 Order name: Protime (+INR) EDMS 01/12 16:51 Order name: Protime (+INR) EDMS 01/12 16:51 Order name: PTT, Activated Partial Thromb EDMS 01/12 16:51 Order name: PTT, Activated Partial Thromb EDMS 01/12 14:07 Order name: CT Head Brain wo Cont; Complete Time: 14:49 ms3 01/12 16:50 Order name: CONS Physician Consult EDMS 01/12 16:50 Order name: CONS Physician Consult EDMS Administered Medications: 16:43 Drug: Penicillin G Potassium IVPB 3 million units IVPB once Route: IVPB; Site: right me1 antecubital; Disposition Summary: 01/13/24 13:29 Hospitalization Ordered Notes: Hospitalization Status: Inpatient Admission ms3 Provider: Linda Velazquez ms3 Condition: Stable ms3 Problem: new ms3 Symptoms: are unchanged ms3 Bed/Room Type: Standard ms3 Location: Telemetry/MedSurg (Inpatient)(01/13/24 16:13) bd Room Assignment: 422(01/13/24 16:13) bd Diagnosis - Neurosyphillis ms3 Forms: - Medication Reconciliation Form ms3 - SBAR form ms3 - Leadership Thank You Letter ms3 Signatures: Dispatcher [employer] EDCait Cates bd Emiliano Toledo, DO DO ms3 Roberta Aponte, RN RN mb9 Maritza Holbrook RN RN me1 Corrections: (The following items were deleted from the chart) 14:54 13:29 Telemetry/MedSurg (Inpatient) ms3 bd 14:54 13:29 ms3 bd 16:13 14:54 [facility] ER HOLD bd bd 16:13 14:54 ERHOLD- bd bd
--- NOTE | 2024-01-13 13:30 | ER ---
Nurse's Notes [facility] Name: Patricio King Age: 73 yrs Sex: Male : 1950 Arrival Date: 01/13/2024 Time: 12:56 Bed 15 Private MD: Diagnosis: Neurosyphillis Presentation: 01/12 13:05 Chief complaint: Patient states: "Dr. Cuellar sent me here because I'm positive for mb9 Syphilis.". Coronavirus screen: Vaccine status: Patient reports being unvaccinated. Ebola Screen: No symptoms or risks identified at this time. Initial Sepsis Screen: Does the patient meet any 2 criteria? No. Patient's initial sepsis screen is negative. Does the patient have a suspected source of infection? No. Patient's initial sepsis screen is negative. Risk Assessment: Do you want to hurt yourself or someone else? Patient reports no desire to harm self or others. Onset of symptoms was January 13, 2024. 13:05 Method Of Arrival: Ambulatory mb9 13:05 Acuity: CATARINO 3 mb9 Triage Assessment: 13:07 General: Appears in no apparent distress. Behavior is calm, cooperative. Pain: Denies mb9 pain. 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 Neuro: Level of Consciousness is awake, alert, obeys commands, Oriented to person, place, time, situation, Appropriate for age. Cardiovascular: Patient's skin is warm and dry. Respiratory: Airway is patent. Musculoskeletal: Range of motion: intact in all extremities. Historical: - Allergies: 13:06 No Known Allergies; mb9 - Home Meds: 13:06 None [Active]; mb9 - PMHx: 13:06 prostate cancer; macular degeneration; mb9 - PSHx: 12:59 Prostate cancerous mass removed; mb9 - Immunization history:: Adult Immunizations up to date. - Social history:: Smoking status: Patient reports the use of cigarette tobacco products, smokes one-half pack cigarettes per day. Screenin:14 [facility] ED Fall Risk Assessment (Adult) History of falling in the last 3 months, me1 including since admission No falls in past 3 months (0 pts) Confusion or Disorientation No (0 pts) Intoxicated or Sedated No (0 pts) Impaired Gait No (0 pts) Mobility Assist Device Used No (0 pt) Altered Elimination No (0 pt) Score/Fall Risk Level 0 - 2 = Low Risk Maintained a safe environment, Provided non-skid footwear, Hourly rounding (assess needs \\T\\ fall precautionary measures) done. Abuse screen: Denies threats or abuse. Nutritional screening: No deficits noted. Tuberculosis screening: No symptoms or risk factors identified. Assessment: 13:14 General: Appears in no apparent distress. well groomed, well developed, well nourished, me1 Behavior is calm, cooperative, appropriate for age, Reports Sent by his Dr because he is positive for syphilis. Pain: Denies pain. 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 . Cardiovascular: Patient's skin is warm and dry. Respiratory: Respiratory effort is even, unlabored, Respiratory pattern is regular, symmetrical. : Denies burning with urination, urinary frequency. Derm: Skin is pink, warm \\T\\ dry. Musculoskeletal: No deficits noted. 14:30 Reassessment: No changes from previously documented assessment. Patient and/or family me1 updated on plan of care and expected duration. Pain level reassessed. Patient is alert, oriented x 3, equal unlabored respirations, skin warm/dry/pink. 15:02 General: Followed up with pharmacy to see if they got my fax for the penicillin G. I me1 was informed that ID had been consulted and may be changing the abx to rocephin. Waiting for confirmation. . 16:00 Reassessment: No changes from previously documented assessment. Patient and/or family me1 updated on plan of care and expected duration. Pain level reassessed. Patient is alert, oriented x 3, equal unlabored respirations, skin warm/dry/pink. 16:20 General: Refused hospital gown to go up to room. Stated he would put one on when he me1 gets to his room but does not want to go through the hospital in one. . Vital Signs: 13:05 BP 187 / 94; Pulse 76; Resp 16; Temp 98.2; Pulse Ox 95% on R/A; Weight 58.97 kg; Height mb9 5 ft. 7 in. ; Pain 0/10; 13:45 BP 179 / 94; Pulse 69; Resp 16; Pulse Ox 97% ; me1 14:30 BP 172 / 100; Pulse 66; Resp 16; Pulse Ox 100% on R/A; me1 16:21 BP 195 / 96; Pulse 66; Resp 16; Temp 98.2; Pulse Ox 98% ; me1 13:05 Body Mass Index 20.36 (58.97 kg, 170.18 cm) mb9 13:05 Pain Scale: Adult 9 ED Course: 12:59 Patient arrived in ED. im 12:59 Arm band placed on. mb9 13:00 Emiliano Toledo DO is Attending Physician. ms3 13:06 Triage completed. mb9 13:07 Maritza Holbrook, RN is Primary Nurse. me1 13:14 Patient has correct armband on for positive identification. Bed in low position. Call me1 light in reach. Side rails up X2. Provided Education on: POC. Verbalized understanding. . 13:14 No provider procedures requiring assistance completed. me1 13:29 Linda Velazquez MD is Hospitalizing Provider. ms3 13:42 Client placed on continuous cardiac and pulse oximetry monitoring. NIBP monitoring me1 applied. Pulse ox on. NIBP on. 13:42 Inserted saline lock: 20 gauge in right antecubital area, using aseptic technique. me1 14:20 CT Head Brain wo Cont In Process Unspecified. EDMS 18:46 Patient admitted, IV remains in place. me1 Administered Medications: 16:43 Drug: Penicillin G Potassium IVPB 3 million units IVPB once Route: IVPB; Site: right me1 antecubital; Medication: 13:14 VIS not applicable for this client. me1 Outcome: 13:29 Decision to Hospitalize by Provider. ms3 16:53 Patient left the ED. aa5 18:45 Admitted to Tele accompanied by nurse, via wheelchair, room 422, with chart, Report me1 called to faxed report at 16:25- confirmed receipt with Rosio at 16:26. 18:45 Condition: stable 18:45 Instructed on the need for admit, Signatures: Dispatcher [employer] Mya Thornton, STEF FINCH aa5 Emiliano Toledo DO DO ms3 Roberta Aponte RN RN mb9 Florecita Hebert Maritza Holbrook, STEF RN me1
[2024-01-13 13:54] LABS: Absolute Eosinophils 0.1 K/uL (0-0.5); Absolute Lymphocytes (CBC) 2.2 K/uL (0.7-4.9); Absolute Monocytes 0.9 K/uL (0.1-1.3); Absolute Neutrophil 6.1 K/uL (1.8-8.0); Basophils % 0.5 % (0-1.3); Eosinophils % 1.1 % (0-4.4); Hematocrit 41.2 % (39.6-49.0); Hemoglobin 13.5 g/dL (13.6-17.9); Lymphocytes % 23.5 % (15.3-44.8); MCH 29.1 pg (27.0-35.0); MCHC 32.7 g/dL (32.0-36.0); MPV 7.2 fL (7.6-11.3); Monocytes % 9.3 % (3.3-12.3); Neutrophils % 65.6 % (41.7-73.7); Platelets 390 thou/uL (152-406); RBC Red Blood Cell Count 4.63 M/uL (4.33-5.43); Red Cell Distribution Width 15.1 % (12.1-15.2)
[2024-01-13 14:03] LABS: Albumin 2.9 g/dL (3.4-5.0); Anion Gap 8.8 mEq/L (5.0-15.0); Bilirubin Total 0.5 mg/dL (0.2-1.0); Globulin 4.8 g/dL (2.3-3.5); Potassium 3.8 mEq/L (3.5-5.1); Protein, Total 7.7 g/dL (6.4-8.2)
[2024-01-13 14:04] LABS: Albumin/Globulin Ratio 0.6 (1.1-1.8)
--- NOTE | 2024-01-13 14:46 | RAD REPORT ---
EXAM DESCRIPTION: CT - Head Brain Wo Cont - 01/13/2024 2:19 pm CLINICAL HISTORY: Vision changes COMPARISON: None TECHNIQUE: Computed axial tomography of the head was obtained. IV contrast was not requested. All CT scans are performed using dose optimization technique as appropriate and may include automated exposure control or mA/KV adjustment according to patient size. FINDINGS: An intracranial bleed is not seen The ventricles are normal in caliber No extra-axial fluid collection is noted. Mild low-density areas within periventricular, deep and subcortical white matter likely represent isc hemic changes secondary to small vessel disease. Fluid within the sinuses/ mastoids is not seen. IMPRESSION: No acute intracranial abnormality is seen If patient's symptoms persist MRI of the brain would be recommended
[2024-01-13] MEDS ORDERED: MAGNESIUM HYDROXIDE 8% 30 ML PO PRN (16:42)
--- NOTE | 2024-01-13 16:52 | P.HP ---
Patient History Date of Service: 01/13/24 Reason for admission: Treatment for Neurosyphilis History of Present Illness: Pt is a 73 yo male with past medical history of prostate cancer and macular degeneration who was sent by his endoscopy specialty technician to the ER for further treatment of neurosyphilis. Pt reports worsening of his vision, hearing loss and joint ache that started months ago. The constellation of symptoms made his PCP to suspect syphilis. Pt visited his eye doctor last saturday for a test and they did blood work. The lab work showed high titer for syphilis. The Eye doctor called pt on saturday and told him to come to the ER for treatment. On admission, lab studies show wbc 9.3, Hgb 13.5, Cr 1.07, CT head is unremarkable. At bedside, pt is in NAD. ROS is significant for poor vision, right knee pain and hearing loss. Allergies No Known Allergies Allergy (Unverified 01/13/24 14:54) Review of Systems General: Unremarkable Eyes: Vision Change ENT: Other (hearing loss) Respiratory: Unremarkable Cardiovascular: Unremarkable Gastrointestinal: Unremarkable Genitourinary: Unremarkable Musculoskeletal: Other (knee pain) Integumentary: Unremarkable Neurological: Unremarkable Lymphatics: Unremarkable Physical Examination - Physical Exam General: Alert, In no apparent distress, Oriented x3 HEENT: Atraumatic, Normocephalic, PERRLA Neck: Supple, 2+ carotid pulse no bruit Respiratory: Clear to auscultation bilaterally, Normal air movement Cardiovascular: No edema, Normal pulses, Regular rate/rhythm, Normal S1 S2 Capillary refill: <2 Seconds Gastrointestinal: Normal bowel sounds, Soft and benign, Non-distended Musculoskeletal: No clubbing, No swelling, No contractures Integumentary: No rashes, No breakdown Neurological: Normal gait, Normal speech, Normal strength at 5/5 x4 extr Lymphatics: No axilla or inguinal lymphadenopathy - Studies Laboratory Data (last 24 hrs) 01/13/24 01/13/24 13:40 13:40 WBC 9.30 Hgb 13.5 L Hct 41.2 Plt Count 390 Sodium 138 Potassium 3.8 BUN 18 Creatinine 1.07 Glucose 105 Total Bilirubin 0.5 AST 14 L ALT 17 Alkaline Phosphatase 69 Assessment and Plan - Plan Neurosyphilis: Will give iv rocephin 2gm iv BID for 14 day. We don't have enough penicillin in the hospital. ID and Neurology are following. Htn: Will continue amlodipine and lisinopril with prn iv hydralazine. Tobacco abuse: Pt was advised to quit smoking. Will give nicotine patch. DVT ppx: lovenox Code: full - Advance Directives Does patient have a Living Will: No Does patient have a Durable POA for Healthcare: No
[2024-01-13] MEDS: ENOXAPARIN 40 MG/0.4 ML SQ SCH (17:00)
[2024-01-13] MEDS: PENICILLIN MU IV ONE (17:00)
[2024-01-13] MEDS: NA CHLORIDE IV ONE (17:00)
[2024-01-13] MEDS: NICOTINE 21 MG/PAT TD SCH (17:31)
[2024-01-13] MEDS: HYDRALAZINE HCL 20 MG/ML VIAL IV PRN (17:32)
[2024-01-13] MEDS: lisinopriL 10 MG TAB PO SCH (17:32)
[2024-01-13] MEDS: AMLODIPINE 10 MG TAB PO SCH (17:32)
[2024-01-13 17:57] VITALS: BMI 20.3
[2024-01-13] MEDS: LORazepam 2 MG/ML VIAL IV ONE (17:58)
[2024-01-13] MEDS: CEFTRIAXONE 2,000 MG in NA CHLORIDE 0.9% 100 ML IV SCH (20:31)
[2024-01-13] MEDS: INSULIN REGULAR (HUMAN) 100 UNIT/ML SQ SCH (21:00)
[2024-01-13] MEDS: HYDRALAZINE HCL 10 MG TABLET PO PRN (21:57)
--- NOTE | 2024-01-13 22:14 | CON ---
Date of Consultation: 01/13/2024 Reason For Consultation: Neurosyphilis. History Of Present Illness: Mr. King is a 73-year-old right-handed patient with prostate cancer, macular degeneration, who has about 2 to 3 months of progressive problems with hearing loss, joint aches, especially in the hands, very mild cognitive dysfunction and was seen by his ophthalmol ogist last Saturday. He had vision problems and there was suspicion after the ophthalmological exam fo r syphilis. His primary care physician also constellation of symptoms consistent with bryn t. His blood work showed high titers of Treponema pallidum antibody and RPR was very elevated as wel l. White blood cell count was normal. Hemoglobin is unremarkable. Creatinine unremarkable. His he ad CT scan showed no acute ischemic or hemorrhagic findings. The patient was [facility] to the [facility] and is receiving Rocephin IV 2 g every 12 hours for 14 days as penicillin is in short supply in the hospital's formulary. Past Medical History: As noted above. Allergies: NO KNOWN DRUG ALLERGIES. Medications: Tylenol 650 every 4 hours as needed, Norvasc 10 mg daily, Rocephin 2 g every 12 hours f or 14 days, Lovenox 40 mg subcutaneously daily, Apresoline 10 mg IV every 4 hours as needed for systo lic blood pressure greater than 160 and 20 mg every 4 hours for systolic blood pressure greater than 180, Prinivil 10 mg daily, Milk of Magnesia 30 mL daily as needed, NicoDerm patch 21 mg daily. Social History: The patient is tobacco dependent and kept asking to go smoke cigarettes. He said hi s a few years ago. He denies any recent sexual contacts, perhaps around 3 or more y ears ago. Review of Systems: As noted, he did report significant joint pains, especially in hands and swelling noted in the joints and decreased vision, some balance coordination difficulties, and mild issues of cognition impairmen t. Family History: Noncontributory. Physical Examination: Vital Signs: Blood pressure ranging very elevated up to 222/116 and down to 170/83. Pulse ranged fr om 66 to 88, respiratory rate 16 to 18, temperature 98.3, oxygen saturation 98% on room air. Weight 130 pounds, height 5 feet 7 inches, BMI 20.4. General: Mr. King is sitting on the side of his bed. He is finishing his dinner. His daughter-in -law is in the room. HEENT: He does have a poor dentition, otherwise. He has difficulty due to macular degeneration look ing at other than channels. He is able to turn his head towards sound. He is otherwise normocephali c. He has no facial asymmetry. Tongue and palate are midline. Neurologic: Motor examination: He has no focal weakness in the arms and legs. No sensory loss. He does have swelling of the joints in his hands consistent with osteoarthritis. He has also potential ly Charcot joints. His gait, he has good stance and stride. Able to ambulate to the restroom. Refl exes are depressed to absent and coordination is intact in the extremities. Laboratory Studies: White blood cell count 9.3, hemoglobin 13.5, platelets 390. Sodium 138, potassi um 3.8, chloride 105, carbon dioxide 28, BUN 18, AST 14, ALT 17, alkaline phosphatase 69. Assessment: Mr. King is a 73-year-old patient with uncontrolled hypertension, neurosyphilis, prost ate cancer, macular degeneration, who did receive in the emergency room shot of penicillin G IV piggy back 3 million units once, now is on Rocephin 2 g twice daily for 14 days. Plan: 1.Continue with IV Rocephin. 2.Work to lower blood pressure, to lower systolic less than 170. 3.Flomax 0.4 mg at night. 4.The patient once on an established course of treatment, may have more central access placed and po tentially able to be home, but have direct observed therapy to continue with the IV Rocephin. The alth department should be contacted and any potential contact tracing may be done by the Health Depar tme. The patient may have routine electroencephalogram at some point and further imaging may be do ne, but brain MRI without contrast. 5.Nicotine patch 21 mg patch daily and may continue with Lovenox 40 mg subcutaneously daily. If he has issues of weight management, may add Megace to help with his appe tite 40 mg twice daily. LB/MODL Voice ID: [id number] Report ID: [id number]
[2024-01-14 07:08] LABS: Absolute Basophils 0.1 K/uL (0-0.5); Absolute Eosinophils 0.2 K/uL (0-0.5); Absolute Lymphocytes (CBC) 1.6 K/uL (0.7-4.9); Absolute Monocytes 0.8 K/uL (0.1-1.3); Absolute Neutrophil 6.1 K/uL (1.8-8.0); Basophils % 0.6 % (0-1.3); Eosinophils % 1.9 % (0-4.4); Hematocrit 38.3 % (39.6-49.0); Hemoglobin 13.3 g/dL (13.6-17.9); Lymphocytes % 18.8 % (15.3-44.8); MCH 30.8 pg (27.0-35.0); MCHC 34.7 g/dL (32.0-36.0); MCV 88.8 fL (80-100); MPV 7.6 fL (7.6-11.3); Monocytes % 8.7 % (3.3-12.3); Platelets 349 thou/uL (152-406); RBC Red Blood Cell Count 4.31 M/uL (4.33-5.43); Red Cell Distribution Width 15.2 % (12.1-15.2)
[2024-01-14 07:13] LABS: PT Prothrombin Time 12.9 SECONDS (9.5-12.5); PTT, Activated Partial Thromb 34.9 SECONDS (24.3-36.9); Protime INR 1.18
[2024-01-14 07:29] LABS: Albumin 2.6 g/dL (3.4-5.0); Albumin/Globulin Ratio 0.6 (1.1-1.8); Anion Gap 6.3 mEq/L (5.0-15.0); Bilirubin Total 0.5 mg/dL (0.2-1.0); Globulin 4.3 g/dL (2.3-3.5); Phosphorus 2.1 mg/dL (2.5-4.9); Potassium 3.3 mEq/L (3.5-5.1); Protein, Total 6.9 g/dL (6.4-8.2); Thyroid Stimulating Hormone 1.55 uIU/mL (0.358-3.740)
[2024-01-14] MEDS: POTASSIUM CL SA 10 MEQ TAB PO SCH (08:45)
[2024-01-14] MEDS ORDERED: AMLODIPINE 5 MG TAB PO SCH (09:00)
[2024-01-14] MEDS ORDERED: lisinopriL 10 MG TAB PO SCH (09:00)
--- NOTE | 2024-01-14 09:36 | P.CNS ---
Date of Consult: 01/14/24 (INFECTIOUS DISEASE CONSULTATION) Reason for Consult: neurosyphilis Requesting Physician: Linda Velazquez Chief Complaint: Treatment for Neurosyphilis History of Present Illness: Patient is a 73 yo male with a past medical history of prostate cancer, hypertension and macular degeneration who was sent to the ED by his opticianry teacher for further treatment of neurosyphilis. Patient had an appointment with his opticianry teacher last week during which labs were drawn including syphilis. The lab work reportedly showed elevated syphilis titer. He cannot recall what the titer number result was, only that it was positive and elevated. Patient denies previous diagnosis of syphilis and denies any prior treatment for syphilis in the past. CT head without acute intracranial abnormalities. Infectious disease consulted for treatment of neurosyphilis. Allergies No Known Allergies Allergy (Unverified 01/13/24 14:54) Home medications list reviewed: Yes Home Medications: NK [No Home Meds] 01/13/24 - Past Medical/Surgical History Diabetic: No -: HTN -: MACULAR DEGENERATION -: CATARACT SX - Social History Smoking Status: Current every day smoker Alcohol use: No CD- Drugs: No Caffeine use: Yes Place of Residence: Home Review of Systems 10-point ROS is otherwise unremarkable Eyes: Vision Change ENT: Other (decreased hearing) Physical Examination Temp Pulse Resp BP Pulse Ox 98.5 F 80 16 155/86 H 98 01/14/24 08:00 01/14/24 08:47 01/14/24 08:00 01/14/24 08:47 01/14/24 08:00 General: Alert, In no apparent distress, Oriented x3 HEENT: Atraumatic, Normocephalic Respiratory: Clear to auscultation bilaterally, Normal air movement Cardiovascular: No edema, Regular rate/rhythm Gastrointestinal: Normal bowel sounds, Soft and benign, No tenderness Musculoskeletal: No clubbing, No swelling Integumentary: No rashes, No breakdown Neurological: Normal speech, Normal strength at 5/5 x4 extr, Normal affect Laboratory Data - Reviewed Microbiology Data - Reviewed Imagings Data: - Reviewed Conclusions/Impression: Problem List Suspected Neurosyphilis Hypertension Hyperlipidemia Macular Degeneration Neurosyphilis - pending RPR titer - physical/paper chart reviewed with photocopy from outside record with T.pallidum PCR = positive. - patient denies being diagnosed or treated for syphilis in the past. He also denies any signs/symptoms of syphilis in the past. Only in recent months patient has described vision changes and hearing loss. - No leukocytosis - Afebrile Recommendations - RPR titer ordered, pending. Follow up with results. - Continue with Ceftriaxone 2g IV Q24H x 14 days. - typically a CSF VDRL to confirm diagnosis of neurosyphilis. However, given signs/symptoms and undiagnosed/untreated syphilis, will treat as neurosyphilis with 10-14 days of Ceftriaxone 2g IV q24H. - Recommend clinical and serological evaluation (RPR) at 6, 12 and 24 months following treatment. -Patient will need midline/PICC line for continued IV antibiotics as outpatient. Case discussed with Benjamin Arzola
--- NOTE | 2024-01-14 11:06 | P.PN ---
Subjective Date of Service: 01/14/24 Chief Complaint: Treatment for Neurosyphilis Pt is resting comfortably in bed. He is feeling better. Pt is getting rocephin 2gm iv BID due to shortage of penicillin. No other complaints. Review of Systems General: Unremarkable Eyes: Unremarkable ENT: Unremarkable Respiratory: Unremarkable Cardiovascular: Unremarkable Gastrointestinal: Unremarkable Genitourinary: Unremarkable Musculoskeletal: Unremarkable Integumentary: Unremarkable Neurological: Unremarkable Lymphatics: Unremarkable Physical Examination - Vital Signs Temperature: 98.5 F Blood Pressure: 155/86 Pulse: 80 Respirations: 16 Pulse Ox (%): 98 - Physical Exam General: Alert, In no apparent distress, Oriented x3 HEENT: Atraumatic, Normocephalic, PERRLA, EOMI Neck: Supple, 2+ carotid pulse no bruit Respiratory: Clear to auscultation bilaterally, Normal air movement Cardiovascular: No edema, Normal pulses, Regular rate/rhythm, Normal S1 S2 Capillary refill: <2 Seconds Gastrointestinal: Normal bowel sounds, Soft and benign, Non-distended Musculoskeletal: No clubbing, No swelling Integumentary: No rashes, No breakdown, No significant lesion Neurological: Normal gait, Normal speech, Normal strength at 5/5 x4 extr, Normal tone, Sensation intact Lymphatics: No axilla or inguinal lymphadenopathy - Studies Laboratory Data (last 24 hrs) 01/13/24 01/13/24 13:40 13:40 WBC 9.30 Hgb 13.5 L Hct 41.2 Plt Count 390 Sodium 138 Potassium 3.8 BUN 18 Creatinine 1.07 Glucose 105 Total Bilirubin 0.5 AST 14 L ALT 17 Alkaline Phosphatase 69 Assessment And Plan - Plan Neurosyphilis: Will give iv rocephin 2gm iv BID for 14 day. We don't have enough penicillin in the hospital. ID and Neurology are following. Htn: Will continue amlodipine and lisinopril with prn iv hydralazine. Hypokalemia: K is 3.3. WIll replete and monitor. HLD: atorvastatin 40mg po qhs. T. chol is 201 and LDL is 139. Tobacco abuse: Pt was advised to quit smoking. Will give nicotine patch. DVT ppx: lovenox Code: full
[2024-01-14] MEDS: METOPROLOL XL 25 MG TAB PO SCH (12:40)
[2024-01-14] MEDS: ATORVASTATIN 40 MG TAB PO SCH (20:11)
[2024-01-15] MEDS: LORazepam 2 MG/ML VIAL IV ONE (02:09)
[2024-01-15 04:49] LABS: RPR (Rapid Plasma Reagin) REACTIVE (NON-REACT)
[2024-01-15 07:42] LABS: Absolute Basophils 0.1 K/uL (0-0.5); Absolute Eosinophils 0.2 K/uL (0-0.5); Absolute Lymphocytes (CBC) 2.2 K/uL (0.7-4.9); Absolute Monocytes 0.9 K/uL (0.1-1.3); Absolute Neutrophil 5.2 K/uL (1.8-8.0); Eosinophils % 2.3 % (0-4.4); Hematocrit 41.9 % (39.6-49.0); Lymphocytes % 25.9 % (15.3-44.8); MCH 29.6 pg (27.0-35.0); MCHC 33.4 g/dL (32.0-36.0); MCV 88.8 fL (80-100); MPV 7.2 fL (7.6-11.3); Monocytes % 10.3 % (3.3-12.3); Neutrophils % 60.5 % (41.7-73.7); Nucleated Red Blood Cells % 0.1 % (0-0); Platelets 352 thou/uL (152-406); RBC Red Blood Cell Count 4.71 M/uL (4.33-5.43); Red Cell Distribution Width 15.1 % (12.1-15.2)
[2024-01-15 08:00] LABS: Albumin 2.8 g/dL (3.4-5.0); Albumin/Globulin Ratio 0.6 (1.1-1.8); Anion Gap 5.9 mEq/L (5.0-15.0); Bilirubin Total 0.5 mg/dL (0.2-1.0); Globulin 4.7 g/dL (2.3-3.5); Potassium 3.9 mEq/L (3.5-5.1); Protein, Total 7.5 g/dL (6.4-8.2)
[2024-01-15] MEDS: clonazePAM 0.5 MG TAB PO SCH (08:54)
--- NOTE | 2024-01-15 11:07 | P.PN ---
Date of Service: 01/15/24 Chief Complaint: Treatment for Neurosyphilis Subjective: In no apparent distress. No acute events overnight. Denies any new or worsening complaints at this time. Continue current plan of care with Ceftriaxone 2g IV Q24H x 14 days. Physical Examination Temp Pulse Resp BP Pulse Ox 98.3 F 86 16 166/81 H 98 01/15/24 08:00 01/15/24 08:54 01/15/24 08:00 01/15/24 08:54 01/15/24 08:00 General: Alert, In no apparent distress, Oriented x3 HEENT: Atraumatic, Normocephalic Respiratory: Clear to auscultation bilaterally, Normal air movement Cardiovascular: No edema, Regular rate/rhythm Gastrointestinal: Normal bowel sounds, Soft and benign, No tenderness Musculoskeletal: No clubbing, No swelling Integumentary: No rashes, No breakdown Neurological: Normal speech, Normal strength at 5/5 x4 extr, Normal affect Laboratory Data - Reviewed Microbiology Data - Reviewed Imagings Data: - Reviewed Assessment and Plan Problem List Suspected Neurosyphilis Hypertension Hyperlipidemia Macular Degeneration Nicotine Dependence Neurosyphilis - RPR titer on 01/14= 1:256 - patient denies being diagnosed or treated for syphilis in the past. He also denies any signs/symptoms of syphilis in the past. Only in recent months patient has described vision changes and hearing loss. - No leukocytosis - Afebrile Recommendations - Neurosyphilis: pencillin G limited stock at this facility, therefore recommend continuing with Ceftriaxone 2g IV Q24H x 14 days. Patient also states he will be more complaint at home with Q24H Ceftriaxone dosing versus q4h pencillinG dosing. - Pending midline/PICC line for continued IV antibiotics as outpatient. - typically a CSF VDRL to confirm diagnosis of neurosyphilis. However, given signs&symptoms and undiagnosed/untreated syphilis, RPR titer 1:256, will treat as neurosyphilis with 14 days of Ceftriaxone 2g IV q24H. - Recommend clinical and serological evaluation at 6, 12 and 24 months following treatment completion. Case discussed with Benjamin Arzola
--- NOTE | 2024-01-15 17:27 | P.PN ---
Subjective Date of Service: 01/17/24 Chief Complaint: Treatment for Neurosyphilis Subjective: No new changes, No C/O voiced Review of Systems 10-point ROS is otherwise unremarkable ENT: As per HPI Physical Examination - Vital Signs Temperature: 97.5 F Blood Pressure: 176/85 Pulse: 64 Respirations: 16 Pulse Ox (%): 95 - Physical Exam General: Alert, In no apparent distress, Oriented x3 HEENT: Atraumatic, Normocephalic Neck: Supple Respiratory: Normal air movement Cardiovascular: Normal pulses, Regular rate/rhythm Capillary refill: <2 Seconds Gastrointestinal: Soft and benign Musculoskeletal: No clubbing, No swelling Integumentary: No rashes Neurological: Normal speech, Normal tone Lymphatics: No axilla or inguinal lymphadenopathy External genitalia: Deferred Rectal: Deferred Assessment And Plan - Plan Plan Neurosyphilis: Will give iv rocephin 2gm iv BID for 14 day. We don't have enough penicillin in the hospital. ID and Neurology are following. treatment plan changed for 10 more days of Rocephin 2gm IV daily. sw reached out to health department to inquire about antibiotic completion surveillance, they will call back Htn: Will continue amlodipine and lisinopril with prn iv hydralazine. Hypokalemia: improved, monitor. HLD: atorvastatin 40mg po qhs. T. chol is 201 and LDL is 139. Tobacco abuse: Pt was advised to quit smoking. Will give nicotine patch. DVT ppx: lovenox Code: full
[2024-01-15] MEDS: ACETAMINOPHEN 325 MG TABLET PO PRN (19:06)
[2024-01-16 07:34] LABS: Absolute Basophils 0.1 K/uL (0-0.5); Absolute Eosinophils 0.2 K/uL (0-0.5); Absolute Lymphocytes (CBC) 2.9 K/uL (0.7-4.9); Absolute Monocytes 0.7 K/uL (0.1-1.3); Absolute Neutrophil 4.4 K/uL (1.8-8.0); Eosinophils % 2.5 % (0-4.4); Hematocrit 41.6 % (39.6-49.0); Lymphocytes % 34.9 % (15.3-44.8); MCH 29.8 pg (27.0-35.0); MCHC 33.6 g/dL (32.0-36.0); MCV 88.8 fL (80-100); MPV 7.1 fL (7.6-11.3); Monocytes % 8.9 % (3.3-12.3); Neutrophils % 52.7 % (41.7-73.7); Nucleated Red Blood Cells % 0.1 % (0-0); Platelets 371 thou/uL (152-406); RBC Red Blood Cell Count 4.68 M/uL (4.33-5.43); Red Cell Distribution Width 14.6 % (12.1-15.2)
[2024-01-16 07:51] LABS: Albumin 2.8 g/dL (3.4-5.0); Albumin/Globulin Ratio 0.6 (1.1-1.8); Anion Gap 6.8 mEq/L (5.0-15.0); Bilirubin Total 0.5 mg/dL (0.2-1.0); Globulin 4.5 g/dL (2.3-3.5); Potassium 3.8 mEq/L (3.5-5.1); Protein, Total 7.3 g/dL (6.4-8.2)
[2024-01-16] MEDS: CEFTRIAXONE 2,000 MG in NA CHLORIDE 0.9% 100 ML IV SCH (08:38)
--- NOTE | 2024-01-16 08:40 | P.PN ---
Subjective Date of Service: 01/16/24 Chief Complaint: Treatment for Neurosyphilis Subjective: No new changes (pt had PICC placed yesterday evening) <Lizet Roman - Last Filed: 01/16/24 08:38> Date of Service: 01/16/24 <sukhwinder muñoz - Last Filed: 01/16/24 17:54> Review of Systems 10-point ROS is otherwise unremarkable Eyes: As per HPI ENT: As per HPI <Lizet Roman - Last Filed: 01/16/24 08:38> Physical Examination - Vital Signs Temperature: 97.7 F Blood Pressure: 170/93 Pulse: 79 Respirations: 15 Pulse Ox (%): 96 - Physical Exam General: Alert, In no apparent distress, Oriented x3 HEENT: Atraumatic, Normocephalic Neck: Supple Respiratory: Normal air movement Cardiovascular: Regular rate/rhythm Capillary refill: <2 Seconds Gastrointestinal: Soft and benign Musculoskeletal: No clubbing Integumentary: No rashes Neurological: Normal speech, Normal tone Lymphatics: No axilla or inguinal lymphadenopathy External genitalia: Deferred Rectal: Deferred <Lizet Roman - Last Filed: 01/16/24 08:38> Assessment And Plan - Plan Plan Neurosyphilis: Will give iv rocephin 2gm iv BID for 14 day. We don't have enough penicillin in the hospital. ID and Neurology are following. treatment plan changed for 10 more days of Rocephin 2gm IV daily. PICC completed, also sw reached out to health department to inquire about antibiotic completion surveillance, they will call back Htn: Will continue amlodipine and lisinopril with prn iv hydralazine. Hypokalemia: improved, monitor. HLD: atorvastatin 40mg po qhs. T. chol is 201 and LDL is 139. Tobacco abuse: Pt was advised to quit smoking. Will give nicotine patch. DVT ppx: lovenox Code: full <Lizet Roman - Last Filed: 01/16/24 08:38> - Plan Patient seen and examined. Plan of care discussed with Ms. Roman. Patient has no new complaint. He is asking when he can go home. Patient noted to have high RPR titer. FTA-ABS is pending. Patient diagnosed with neurosyphilis and slated for 14 days of IV Rocephin. services coordinator assisting with arrangement for outpatient IV Rocephin via PICC line. <sukhwinder muñoz - Last Filed: 01/16/24 17:54>
--- NOTE | 2024-01-16 09:07 | P.PN ---
Date of Service: 01/16/24 Chief Complaint: Treatment for Neurosyphilis Subjective: Patient sitting in chair. No acute events overnight. He denies any new or worsening complaints. States he is ready to go home. Plan of care discussed with patient and daughter at bedside. Physical Examination Temp Pulse Resp BP Pulse Ox 97.7 F 79 15 170/93 H 96 01/16/24 08:39 01/16/24 08:39 01/16/24 08:39 01/16/24 08:39 01/16/24 08:39 General: Alert, In no apparent distress, Oriented x3 HEENT: Atraumatic, Normocephalic Respiratory: Clear to auscultation bilaterally, Normal air movement Cardiovascular: No edema, Regular rate/rhythm Gastrointestinal: Normal bowel sounds, Soft and benign, No tenderness Musculoskeletal: No clubbing, No swelling Integumentary: No rashes, No breakdown Neurological: Normal speech, Normal strength at 5/5 x4 extr, Normal affect Laboratory Data - Reviewed Microbiology Data - Reviewed Imagings Data: - Reviewed Medications List: reviewed Assessment and Plan Problem List Suspected Neurosyphilis Hypertension Hyperlipidemia Macular Degeneration Nicotine Dependence Neurosyphilis - RPR titer on 01/14= 1:256 - patient denies being diagnosed or treated for syphilis in the past. He also denies any signs/symptoms of syphilis in the past. Only in recent months patient has described vision changes and hearing loss. - typically a CSF VDRL to confirm diagnosis of neurosyphilis. However, given signs&symptoms and undiagnosed/untreated syphilis, RPR titer 1:256, will treat as neurosyphilis with 14 days of Ceftriaxone 2g IV q24H. - No leukocytosis - Afebrile Recommendations - Neurosyphilis: pencillin G limited stock at this facility, therefore recommend continuing with Ceftriaxone 2g IV Q24H x 14 days. Patient also states he will be more complaint at home with Q24H Ceftriaxone dosing versus q4h pencillinG dosing. - PICC line placed 01/14. - Recommend clinical and serological evaluation at 6, 12 and 24 months following treatment completion. - Follow up with PCP as outpatient in 2 weeks. Case discussed with Benjamin Arzola
[2024-01-16] MEDS: POTASSIUM CL SA 10 MEQ TAB PO ONE ×2 (11:00→11:02)
[2024-01-17 08:10] LABS: Magnesium 2.2 mg/dL (1.6-2.4)
[2024-01-17 11:21] VITALS: O2SAT 97
--- NOTE | 2024-01-17 11:47 | P.DS ---
Admission Date: 01/13/24 Discharge Date: 01/17/24 Reason for Admission: Treatment for Neurosyphilis Consultations: Dr. Mann, Dr. Cordova Procedures: Midline IV Brief History of Present Illness: Pt is a 73 yo male with past medical history of prostate cancer and macular degeneration who was sent by his agriculture scientist to the ER for further treatment of neurosyphilis. Pt reports worsening of his vision, hearing loss and joint a arpit that started months ago. The constellation of symptoms made his PCP to suspect syphilis. Pt visited his eye doctor last saturday for a test and they did blood work. The lab work showed high titer for syphilis. The Eye doctor called pt on saturday and told him to come to the ER for treatment. On admission, lab studies show wbc 9.3, Hgb 13.5, Cr 1.07, CT head is unremarkable. At bedside, pt is in NAD. ROS is significant for poor vision, right knee pain and hearing loss. Hospital Course: Mr. King's hospital course was uneventful. A midline IV access was placed to the left upper arm for Rocephin IV daily per Home health x 10 days to complete the 2 weeks <Lizet Roman - Last Filed: 01/17/24 11:48> Admission Date: 01/13/24 Discharge Date: 01/17/24 - Problems (1) Neurosyphilis in adult Status: Acute (2) Hypertension Status: Acute (3) Hyperlipidemia Status: Acute <sukhwinder muñoz - Last Filed: 01/17/24 18:47> Disposition: [place] [facility]/HOME HEALTH CARE Discharge Condition: GOOD Vital Signs/Physical Exam: Temp Pulse Resp BP Pulse Ox 98.4 F 80 16 139/91 H 96 01/17/24 08:00 01/17/24 08:52 01/17/24 08:00 01/17/24 08:52 01/17/24 08:00 General: Alert, In no apparent distress, Oriented x3 HEENT: Atraumatic, Normocephalic, Other (poor vision and hearing) Neck: Supple Respiratory: Normal air movement Cardiovascular: Normal pulses Capillary refill: <2 Seconds Gastrointestinal: Soft and benign Musculoskeletal: No clubbing Integumentary: No rashes Neurological: Normal speech, Normal tone Lymphatics: No axilla or inguinal lymphadenopathy External genitalia: Deferred Rectal: Deferred Laboratory Data at Discharge: WBC 8.30 thou/uL (4.3-10.9) 01/16/24 07:20 Hgb 14.0 g/dL (13.6-17.9) 01/16/24 07:20 Hct 41.6 % (39.6-49.0) 01/16/24 07:20 Plt Count 371 thou/uL (152-406) 01/16/24 07:20 PT 12.9 SECONDS (9.5-12.5) H 01/14/24 06:21 INR 1.18 01/14/24 06:21 APTT 34.9 SECONDS (24.3-36.9) 01/14/24 06:21 Sodium 137 mEq/L (136-145) 01/16/24 07:20 Potassium 4.0 mEq/L (3.5-5.1) 01/17/24 07:23 BUN 17 mg/dL (7-18) 01/16/24 07:20 Creatinine 0.89 mg/dL (0.70-1.30) 01/16/24 07:20 Glucose 98 mg/dL (74-106) 01/16/24 07:20 Phosphorus 2.1 mg/dL (2.5-4.9) L 01/14/24 06:21 Magnesium 2.2 mg/dL (1.6-2.4) 01/17/24 07:23 Total Bilirubin 0.5 mg/dL (0.2-1.0) 01/16/24 07:20 AST 12 U/L (15-37) L 01/16/24 07:20 ALT 13 U/L (16-61) L 01/16/24 07:20 Alkaline Phosphatase 67 U/L (45-117) 01/16/24 07:20 Triglycerides 69 mg/dL (<150) 01/14/24 06:21 Cholesterol 201 mg/dL (<200) H 01/14/24 06:21 HDL Cholesterol 48 mg/dL (40-60) 01/14/24 06:21 Cholesterol/HDL Ratio 4.19 01/14/24 06:21 <Roman,Lizet Niels - Last Filed: 01/17/24 11:48> Vital Signs/Physical Exam: Temp Pulse Resp BP Pulse Ox 97.5 F 64 16 176/85 H 95 01/17/24 12:58 01/17/24 12:58 01/17/24 12:58 01/17/24 12:58 01/17/24 12:58 Laboratory Data at Discharge: WBC 8.30 thou/uL (4.3-10.9) 01/16/24 07:20 Hgb 14.0 g/dL (13.6-17.9) 01/16/24 07:20 Hct 41.6 % (39.6-49.0) 01/16/24 07:20 Plt Count 371 thou/uL (152-406) 01/16/24 07:20 PT 12.9 SECONDS (9.5-12.5) H 01/14/24 06:21 INR 1.18 01/14/24 06:21 APTT 34.9 SECONDS (24.3-36.9) 01/14/24 06:21 Sodium 137 mEq/L (136-145) 01/16/24 07:20 Potassium 4.0 mEq/L (3.5-5.1) 01/17/24 07:23 BUN 17 mg/dL (7-18) 01/16/24 07:20 Creatinine 0.89 mg/dL (0.70-1.30) 01/16/24 07:20 Glucose 98 mg/dL (74-106) 01/16/24 07:20 Phosphorus 2.1 mg/dL (2.5-4.9) L 01/14/24 06:21 Magnesium 2.2 mg/dL (1.6-2.4) 01/17/24 07:23 Total Bilirubin 0.5 mg/dL (0.2-1.0) 01/16/24 07:20 AST 12 U/L (15-37) L 01/16/24 07:20 ALT 13 U/L (16-61) L 01/16/24 07:20 Alkaline Phosphatase 67 U/L (45-117) 01/16/24 07:20 Triglycerides 69 mg/dL (<150) 01/14/24 06:21 Cholesterol 201 mg/dL (<200) H 01/14/24 06:21 HDL Cholesterol 48 mg/dL (40-60) 01/14/24 06:21 Cholesterol/HDL Ratio 4.19 01/14/24 06:21 <sukhwinder muñoz - Last Filed: 01/17/24 18:47> Diet: Regular Activity: Ad humphrey <Lizet Roman - Last Filed: 01/17/24 11:48> <sukhwinder muñoz - Last Filed: 01/17/24 18:47> Home Medications: Amlodipine [Norvasc*] 10 mg PO DAILY #60 tab 01/17/24 Atorvastatin Calcium [Lipitor] 40 mg PO BEDTIME #60 tab 01/17/24 Metoprolol Succinate [Toprol Xl*] 25 mg PO DAILY #60 tab 01/17/24 clonazePAM [Klonopin*] 0.5 mg PO 30 MIN BEFORE HS PRN 3 Days #3 tab 01/17/24 New Medications: clonazePAM [Klonopin*] 0.5 mg PO 30 MIN BEFORE HS PRN 3 Days #3 tab PRN Reason: Insomnia Atorvastatin Calcium [Lipitor] 40 mg PO BEDTIME #60 tab Amlodipine [Norvasc*] 10 mg PO DAILY #60 tab Metoprolol Succinate [Toprol Xl*] 25 mg PO DAILY #60 tab Physician Discharge Instructions: [facility] ([facility]) P:[phone] F:[phone] [facility]- [address]. [id number], [place] [address] P/ [place]: [phone] F Followup: NONE,NONE [Primary Care Provider] - James Cordova MD [ACTIVE - CAN ADMIT] -
[2024-01-17 13:05] VITALS: BP 176/85; TEMP 97.5
== END 2024-01-17 13:12 | disposition home health service (06) | DRG 57 ==
LOC: ER 12:56 → 4TH 17:06
PROVIDERS: ADMIT Hospitalist; ATTEND Internal Medicine
PROC: 02HV33Z Insertion of Infusion Device into Superior Vena Cava, Percutaneous Approach (ICD-10-PCS; principal; 2024-01-15)
DX: A52.3 Neurosyphilis, unspecified (principal); E87.6 Hypokalemia; I10 Essential (primary) hypertension; H35.30 Unspecified macular degeneration; E78.5 Hyperlipidemia, unspecified; M25.561 Pain in right knee; H91.90 Unspecified hearing loss, unspecified ear; F17.210 Nicotine dependence, cigarettes, uncomplicated; Z71.6 Tobacco abuse counseling; Z85.46 Personal history of malignant neoplasm of prostate; Z79.899 Other long term (current) drug therapy
CPT/HCPCS: 36415; 70450; 80053; 80061; 83735; 84100; 84132; 84443; 85025; 85610; 85730; 86592; 86593; 86780; 96374; 99285; J0360; J0696; J1650; J2540